=== PATIENT | female | born 1935 | race Caucasian/White ===

== ENCOUNTER 2019-07-11 19:30 | Inpatient (IN) | payer MEDICARE, OTHER, SELFPAY ==
[2019-07-11 21:35] VITALS: BP 155/87; PULSE 59; RESP 17; TEMP 36.6; O2SAT 96
[2019-07-11] MEDS: LACTATED RINGERS 1,000 ML 100 ML IV (22:07)
[2019-07-11 22:41] VITALS: O2SAT 92; BMI 21.4
--- NOTE | 2019-07-11 22:43 | PM.HP.1 ---
History of Present Illness History of Present Illness Date Patient Seen: 07/11/19 Time Patient Seen: 22:12 Chief complaint: Right Hip Fx Narrative: Ms. Sheila Mckenna is an 83-year-old female with a history significant for hypertension, hyperlipidemia, depression with anxiety, hypothyroidism, osteoporosis, insomnia, tremor, chronic diarrhea and presbycusis who presents to the ER at [facility] referred by her primary care for right hip pain. Patient sustained a ground level fall, tripping and landing forward on her hands mild [employer] on 07/05/2019. Patient was unable to get due to hip pain and was taken by wheelchair to her car. She contacted her primary care and had imaging done on 07/07/2019 of the hip which were read as normal. Patient again contacted primary care for worsening hip pain and contacted EMS his recommend by her primary care and taken to [facility]. Patient states she never loss consciousness or struck her head and following and has no neck or back pain. She has isolated hip pain which she treated at home with ibuprofen without relief. She has occasional headaches but denies any at the present time. She denies dizziness nasal congestion or sore throat. She reports no complaints of chest pain or palpitations and has no shortness of breath cough or wheezing. She does have occasional abdominal discomfort but none presently and has a history of chronic diarrhea for which she takes anti diarrheal medication every other day. She denies urinary complaints of urgency, frequency or burning. Well there CT scan was obtained which found a impacted subcapital right femoral neck fracture. Lab work obtained well in the ER reveals a white blood cell count of 6.7, hemoglobin 13.4, hematocrit of 38.7 platelets of 418. On chemistry she has a sodium of 128, potassium of 3.5, BUN of 12 and creatinine 0.7 nonfasting glucose of 103. She has a total bilirubin of 0.5, AST of 28 and ALT of 27. On coagulation she has a PT of 12.6 and INR 1.1. [facility] as no on-call orthopedics and therefore contacted Dr. Rissa Benitse who agreed to consult with request for medicine team to admit patient. Patient History Medical History (Updated 07/11/19 @ 22:55 by ORVILLE Mortensen) Chronic diarrhea (Acute) Depression with anxiety (Acute) Hard of hearing (Acute) Hyperlipidemia (Acute) Hypertension (Acute) Hypothyroidism (Acute) Insomnia (Acute) Osteoporosis (Acute) Tremor (Acute) Surgical History (Updated 07/11/19 @ 22:55 by ORVILLE Mortensen) History of cataract surgery (Acute) History of colonoscopy (Acute) History of lumbar laminectomy (Acute) Comment: The patient is the 1st and lives alone in an apartment. Smoking: The patient states she has never used tobacco products. Alcohol: Patient denies alcohol consumption. Substance use: The patient denies recreational pharmaceuticals herbal or cannabis products. Advanced directives: In direct discussion with the patient she states her desire to be FULL CODE. She designates her son Hema Mckenna or Ronnie Mckenna to be surrogate decision makers. Family & Social History Family History (Updated 07/11/19 @ 22:56 by ORVILLE Mortensen) Father Alcoholism Mother Osteoarthritis Hypertension Dementia Sister Hypertension Addiction Meds Home Medications and Allergies Home Medications Medication Instructions Recorded Confirmed Type acyclovir 400 mg PO TID 07/11/19 07/11/19 History atenolol-chlorthalidone 1 tab PO DAILY 07/11/19 07/11/19 History clonazepam 0.5 mg PO Q8H PRN 07/11/19 07/11/19 History fluoxetine 10 mg PO DAILY 07/11/19 07/11/19 History fluoxetine 20 mg PO DAILY 07/11/19 07/11/19 History gabapentin 300 mg PO BEDTIME 07/11/19 07/11/19 History lamotrigine 25 mg PO DAILY 07/11/19 07/11/19 History lxpoy-4z-fem-epa-fish oil [Calvin-3 1,000 cap PO DAILY 07/11/19 07/11/19 History Fish Oil] potassium chloride 20 meq PO DAILY 07/11/19 07/11/19 History risperidone 0.25 mg PO BEDTIME 07/11/19 07/11/19 History temazepam 15 - 20 mg PO BEDTIME PRN 07/11/19 07/11/19 History thyroid (pork) [SWITCHBOARD OPERATOR HELPER Thyroid] 60 mg PO DAILY 07/11/19 07/11/19 History turmeric 400 - 800 mg PO DAILY 07/11/19 07/11/19 History Allergies Allergy/AdvReac Type Severity Reaction Status Date / Time duloxetine Allergy Unknown Verified 07/11/19 22:54 lisinopril Allergy Unknown Verified 07/11/19 22:54 Review of Systems Review of Systems ROS: Yes All systems reviewed with the patient and are negative except as otherwise documented Exam Vital Signs (past 8 hours): - 07/11/19 21:35 Temperature 97.9 F Pulse Rate 59 L Respiratory Rate 17 Blood Pressure 155/87 H Pulse Oximetry 96 Oxygen Flow Rate 0 Narrative Exam Narrative: GENERAL APPEARANCE: well developed, well nourished, in no acute distress. HEENT: Atraumatic, PERRLA, conjunctiva clear, EOMs intact without nystagmus, no sinus tenderness to percussion, no rhinorrhea, mucous membranes are moist and pink without lesions or exudate. NECK/THYROID: Intact ROM without pain or step-offs, no JVD, no carotid bruit, no thyromegaly, trachea midline. LYMPH NODES: no cervical or supraclavicular lymphadenopathy. SKIN: [place], warm and dry, no visible lesions, rashes, ulcerations or petechiae. HEART: Irregular heart rhythm, S1-S2, 1/6 systolic murmur, no rubs or gallops, brisk capillary refill, no edema LUNGS: clear to auscultation bilaterally, no coarseness crackles or wheezing, no cough present CHEST: Symmetrical movement, mild tenderness to palpation anterior chest wall left parasternal without bruising or ecchymosis, no accessory muscle use, good tidal volume. ABDOMEN: Soft, round, attempting to percussion without tenderness, no guarding or peritoneal signs, no organomegaly, no flank or suprapubic tenderness, active bowel tones. BACK: nontender to palpation, no back pain with left straight leg raise EXTREMITIES: Pain on palpation lateral right hip, no shortening or rotation of the right leg, distal CMS intact, strength is 5/5 and symmetrical, NEUROLOGIC: AAO x4, no focal neurologic deficits, cranial nerves II-XII grossly intact, sensation intact to light touch. PSYCH: Somewhat blunted affect but alert and responsive asking spontaneous questions and interactive with stable behavior. Assessment & Plan Assessment & Plan narrative: This is an 83-year-old female patient who has accepted in transfer from [facility] Emergency Department for orthopedic services in treatment of right hip fracture.. Patient sustained a fall on 07/04 and had plain films obtained on 07/06 that were read as normal. The patient continued to have worsening pain and presented to the ER via EMS or CT scan identifies right femoral neck fracture. 1. Right impacted subcapital femoral neck fracture, pathological, acute, present on admission, active. -patient sustained a ground level twisting fall sustaining a pathological hip fracture with a history of osteoporosis -patient sustained fall as above presenting to [facility] for worsening pain. Patient received oxycodone 5 mg x 1 in the ER. -CT scan of the pelvis finds a nondisplaced impacted subcapital femoral neck fracture, 7 mm sclerotic osseous lesion in the right iliac wing was visible prior films dated 09/01, right severe posterior joint space loss with subchondral sclerosis. -there is no orthopedic service available at [facility] and patient is accepted by Dr. Benites for surgical intervention and transferred to [facility]. -ordered acetaminophen 975 mg scheduled every 8 hours for pain. -ordered tramadol 50 mg 3 times daily as needed for pain. -will continue home medication of gabapentin 300 mg by mouth at bedtime. 2. Osteoporosis, chronic, present on admission, active -patient has sustained a pathological hip fracture secondary to osteoporosis. -the patient is not presently on vitamin-D or calcium supplementation, ordered vitamin D3 2000 IU and calcium 600 mg daily. -patient may benefit from bio phosphate or denosumab therapy and deferred to primary care provider. 3. Essential hypertension, chronic, present on admission, active. -upon arrival the patient has a blood pressure 155/87. -will continue home regimen of atenolol 50 mg daily but will hold chlorthalidone 25 mg daily as the patient is hyponatremic at 1:28 a.m. and has potassium of 3.5. 4. Hypothyroidism, chronic, stable -will continue home regimen of SWITCHBOARD OPERATOR HELPER Thyroid 60 mg daily. 5. Chronic diarrhea, stable -patient reports she has been referred to gastroenterology but has not yet been evaluated. -patient takes antidiarrheal every other day to control symptoms, ordered a Imodium every other day with 1st dose now. 6. Insomnia, chronic, active. -patient takes temazepam 1-2 tablets nightly for sleep. -inform the patient that due to use of pain medications will hold temazepam, ordered melatonin 6 mg at bedtime. -patient has routine as needed medication of clonazepam 0.5 mg as needed every 8 hours. May be used as adjunct for sleep. 7. Depression with anxiety, chronic, unknown stability. -the patient's blunted affect at time of assessment still under the effect of oxycodone administered at [facility]. -patient remains cooperative but requires repeat explanations. -will continue patient's home regime of fluoxetine 30 mg daily, lamotrigine 25 mg daily and risperidone 0.25 mg at bedtime. VTE prophylaxis: SCDs, no chemical prophylaxis pending surgery. IV fluid: Normal saline 125 cc/hour. Diet: Heart healthy, NPO at midnight. Code status: FULL CODE The patient is admitted to the hospital for surgical evaluation and intervention by Dr. Benties. The patient is admitted as an inpatient with expected length of stay to be greater than 2 midnights. Scores GCS Jinny coma scale eye opening: Spontaneous [place] coma scale verbal response: Orientated Jinny coma scale motor response: Obey commands [place] coma scale total score: 15
[2019-07-11] MEDS: SODIUM CHLORIDE 0.9% 1,000 ML 125 ML IV (22:55)
[2019-07-11] MEDS: GABAPENTIN 300 MG CAPSULE PO (23:05)
[2019-07-11] MEDS: MELATONIN 3 MG TABLET 6 MG PO (23:05)
[2019-07-11] MEDS: TRAMADOL 50 MG TABLET PO (23:06)
[2019-07-11] MEDS: ACETAMINOPHEN 325 MG TABLET 975 MG PO (23:06)
[2019-07-11 23:53] VITALS: BP 128/74; PULSE 51; RESP 16; TEMP 36.3; O2SAT 94
[2019-07-11 23:57] VITALS: O2SAT 94
[2019-07-12] VITALS (10 sets, daily range): BP systolic 121–161; BP diastolic 62–89; PULSE 47–67; RESP 16–18; TEMP 36.1–37.1; O2SAT 94–99
--- NOTE | 2019-07-12 04:07 | PC.NURSE ---
Addendum entered by Ramona Pennington R.N. 07/12/19 05:19: Patient total output was 225ml, indwelling catheter ordered by LICENSING OFFICER and placed without difficulty. Original Note: Patient has external catheter system (Purewick) that was applied by [employer]. Patient had not voided by 0400, BS for estimated 728ml. Patient requested that DANCE ARTIST carry her to the [facility], was educated that it was unsafe for both patient and staff and encouraged her to utilize external catheter. Discussed with LICENSING OFFICER, stated that patient should not get out of bed given her hip fx and to offer the use of a bed yanez before an indwelling catheter. Patient was able to urinate 25ml into purewick that was measurable which was then removed and patient placed on bed yanez. Will bladder scan patient after voiding attempts to determine if bladder is empty or if an indwelling catheter is necessary.
[2019-07-12 05:54] LABS: RBC Urine None Seen (0-5/HPF)
[2019-07-12 05:55] LABS: Appearance Urine UA CLEAR; Bilirubin Urine UA NEGATIVE (NEGATIVE); Color Urine UA YELLOW; Glucose Urine UA NEGATIVE (Negative); Ketones Urine UA NEGATIVE (NEGATIVE); Leukocyte Esterase Urine UA 2+ (NEGATIVE); Nitrite Urine UA NEGATIVE (Negative); Occult Blood Urine UA NEGATIVE (Negative); Protein Urine UA NEGATIVE (Negative); Specific Gravity Urine UA 1.015 (1.000-1.035); Urobilinogen Urine UA 0.2 E.U./dL (0.2)
[2019-07-12 06:06] LABS: pH Urine UA 7.5 (4.5-8.0)
[2019-07-12] MEDS: SODIUM CHLORIDE 0.9% 1,000 ML 125 ML IV (06:08)
[2019-07-12] MEDS: ACETAMINOPHEN 325 MG TABLET 975 MG PO ×3 (06:08→21:51)
[2019-07-12 06:09] LABS: Bacteria Urine Occasional (0-1); Culture Indicated Urine Specimen Cultured; Squamous Epithelial Cell Urine 0-1 /HPF (0-5/HPF); WBC Urine 1-5/HPF (0-5/HPF)
[2019-07-12 06:27] LABS: Add Manual Diff / Slide Review NO; Alanine Aminotransferase 26 IU/L (<35); Albumin 3.3 g/dL (3.5-5.0); Albumin Globulin Ratio 1.1 (1.0-2.8); Alkaline Phosphatase 39 U/L (38-126); Aspartate Aminotransferase 32 IU/L (14-36); BUN Creatinine Ratio 16.7 (6-22); Basophils Absolute Auto 0 /uL (0-100); Basophils Percent Auto 0.8 % (0-2); Bilirubin Total 0.3 mg/dL (0.2-1.3); Blood Urea Nitrogen 11 mg/dL (7-17); Calcium 8.7 mg/dL (8.4-10.2); Carbon Dioxide 32 mmol/L (22-32); Chloride 95 mmol/L (98-107); Eosinophils Absolute Auto 200 /uL (0-450); Eosinophils Percent Auto 4.7 % (2-4); Estimated Glomerular Filt Rate > 60.0 mL/min (>60); Glucose 102 mg/dL (80-110); HEMOLYSIS < 15 (0-50); Hematocrit 36.8 % (36-46); Hemoglobin 12.7 g/dL (12.0-16.0); Lymphocytes Absolute Auto 1300 /uL (1100-4500); Lymphocytes Percent Auto 26.5 % (25-40); Magnesium 1.6 mg/dL (1.6-2.3); Mean Corpuscular HGB Conc 34.6 % (30-36); Mean Corpuscular Hemoglobin 31.3 PG (26-34); Mean Corpuscular Volume 90.6 fL (80-100); Monocytes Absolute Auto 700 /uL (0-900); Monocytes Percent Auto 15.1 % (3-14); Neutrophils Absolute Auto 2500 /uL (1500-7000); Neutrophils Percent Auto 52.9 % (50-75); Platelet Count 431 X10^3/uL (150-400); Potassium 3.3 mmol/L (3.4-5.1); Red Blood Cell Count 4.06 X10^6/uL (4.0-5.2); Red Cell Distribution Width 14.2 % (11.6-14.8); Sodium 133 mmol/L (137-145); Total Protein 6.3 g/dL (6.3-8.2); White Blood Cell Count 4.7 X10^3/uL (4.5-11.0)
--- NOTE | 2019-07-12 08:32 | P.PN_ITS ---
Subjective Subjective Date Patient Seen: 07/12/19 Interval history: Sheila Mckenna is an 83-year-old female with a past medical history significant for hypertension, hyperlipidemia, depression with anxiety, hypothyroidism, osteoporosis, insomnia, tremor, and chronic diarrhea who presented to [facility] after ground level fall with right hip pain at the guidance of her PCP and was found to have a right hip fracture. Patient was transferred to [facility] as Orthopedic surgery was unavailable at [facility]. The patient is resting in bed comfortably. She reports mild pain at right hip that she rates a +2/10 but that worsens with any movement. She has no other complaints and denies headache, cough, shortness of breath, chest pain, abdominal pain, nausea, vomiting, fever, chills, dysuria, diarrhea or constipation. She is voiding via Navas catheter without difficulty. Plan for possible surgical repair later this afternoon pending COVID 19 results. Exam Vital Signs (past 8 hours): - 07/12/19 04:00 07/12/19 04:51 07/12/19 08:02 Temperature 97.0 F L 97.3 F L Pulse Rate 47 L 55 L Respiratory Rate 18 16 Blood Pressure 161/77 H 139/75 Pulse Oximetry 98 94 99 Oxygen Delivery Method Room Air Oxygen Flow Rate 0 Narrative Exam Narrative: General: Elderly female sitting in bed and in no acute distress, well- developed, well-nourished, appropriately interactive. HEENT: Normocephalic, atraumatic. External ears without defect. Pupils equal, round, and reactive to light and accommodation. Anicteric sclerae, moist conjunctivae, and no lid lag. Oropharynx free of erythema and cobble stoning with moist mucosa. Neck: Supple with full range of motion. No jugular venous distension. No bruits. No lymphadenopathy or thyromegaly. Cardiovascular: Regular rate and rhythm without murmurs, rubs, or gallops appreciated. Pulmonary: Clear to auscultation bilaterally without crackles, wheezes, or rhonchi. Normal respiratory effort with no use of accessory muscles. Abdomen: Soft, bowel sounds present nontender, nondistended. No hepatosplenomegaly or masses appreciated. Extremities: No clubbing, cyanosis, or edema. No obvious deformity of right hip. Skin: Normal temperature, turgor, and texture; no rash, ulcers, or subcutaneous nodules appreciated. Neurological: Cranial nerves grossly intact. Psychiatric: Normal mood and flat affect. Alert and oriented to person, place, and time. Objective Labs Result Diagrams: 07/12/19 05:58 07/12/19 05:58 Labs: Laboratory Results - last 24 hr 07/12/19 07/12/19 07/12/19 05:00 05:58 05:58 WBC 4.7 RBC 4.06 Hgb 12.7 Hct 36.8 MCV 90.6 MCH 31.3 MCHC 34.6 RDW 14.2 Plt Count 431 H Neut % (Auto) 52.9 Lymph % (Auto) 26.5 [place] % (Auto) 15.1 H Eos % (Auto) 4.7 H Baso % (Auto) 0.8 Neut # (Auto) 2500 Lymph # (Auto) 1300 [place] # (Auto) 700 Eos # (Auto) 200 Baso # (Auto) 0 Sodium 133 L Potassium 3.3 L Chloride 95 L Carbon Dioxide 32 BUN 11 Creatinine 0.66 Estimated GFR > 60.0 BUN/Creatinine Ratio 16.7 Glucose 102 Calcium 8.7 Magnesium 1.6 Total Bilirubin 0.3 AST 32 ALT 26 Alkaline Phosphatase 39 Total Protein 6.3 Albumin 3.3 L Globulin 3.0 Albumin/Globulin Ratio 1.1 Urine Color Yellow Urine Appearance Clear Urine pH 7.5 Ur Specific [place] 1.015 Urine Protein Negative Urine Glucose (UA) Negative Urine Ketones Negative Urine Occult Blood Negative Urine Nitrate Negative Urine Bilirubin Negative Urine Urobilinogen 0.2 Ur Leukocyte Esterase 2+ H Urine RBC None seen Urine WBC 1-5/hpf Ur Squamous Epith Cells 0-1 /hpf Urine Bacteria Occasional (0-1) Ur Culture Indicated? Specimen cultured Assessment & Plan Assessment & Plan narrative: Sheila Mckenna is an 83-year-old female with a past medical history significant for hypertension, hyperlipidemia, depression with anxiety, hypothyroidism, osteoporosis, insomnia, tremor, and chronic diarrhea who presented to [facility] after ground level fall with right hip pain at the guidance of her PCP and was found to have a right hip fracture. Patient was transferred to [facility] as Orthopedic surgery was unavailable at [facility]. 1. Acute right pathological impacted subcapital femoral neck fracture, present on admission. Active. -Patient sustained ground level fall with immediate right hip pain and minimally able to ambulate. -CT of pelvis demonstrated a nondisplaced impacted subcapital femoral neck fracture, 7 mm sclerotic osseous lesion in the right iliac wing was visible on prior films dated 2009, right severe posterior joint space loss with subchondral sclerosis. -Patient was transferred from [facility] as Orthopedic surgery was unavailabl. Dr. Benites of orthopedic surgery was consulted and will plan to the repair patient's right hip possibly this afternoon versus tomorrow pending COVID 19 results. -Continue acetaminophen 975 mg scheduled every 8 hours for mild pain and tramadol 50 mg 3 times daily as needed for moderate pain. -Continue home medication of gabapentin 300 mg by mouth at bedtime. -Continue calcium and vitamin-D supplementation. Patient will need to be treated for osteoporosis as an outpatient per PCP or Orthopedic surgery. 2. Hypertension, chronic, present on admission. Stable. -Continue home atenolol 50 mg daily. Held home chlorthalidone 25 mg daily as the patient is hyponatremic with sodium level of 128. 3. Hypothyroidism, chronic, present on admission. Stable. -Ordered TSH with reflex, pending. -Continue home STEAM PLANT OPERATOR Thyroid 60 mg daily. 4. Chronic diarrhea, present on admission. Stable. -Patient reports she has been referred to gastroenterology but has not yet been evaluated. -Patient takes antidiarrheal every other day to control symptoms. Continue home Imodium 2 mg every other day. 5. Insomnia, chronic, present on admission. Stable. -Plan to hold temazepam 15-20 mg daily at bedtime due to concurrent use with narcotics. Ordered and continue melatonin 6 mg at bedtime. -Continue home clonazepam 0.5 mg every 8 hours as needed for anxiety as below and may be used as adjunct for sleep. 6. Depression with anxiety, chronic, unknown stability. -Patient has flat affect and stable mood. She remains cooperative but requires repeat explanations. -Continue home clonazepam 0.5 mg every 8 hours as needed for anxiety, fluoxetine 30 mg daily, lamotrigine 25 mg daily and risperidone 0.25 mg at bedtime. Code status: Full code VTE prophylaxis: ASA x 1 dose and SCD's Disposition: Patient remains hospitalized pending surgical repair of right hip. Patient will likely discharge in several days once mobilizing either home with home health versus assisted facility for continued rehabilitation.
--- NOTE | 2019-07-12 10:21 | PM.CHAP ---
Addendum entered by Colton Arreola 07/12/19 10:33: Additional contact information: daughter: Le Mckenna, friend in [place] with apartment: [address], or [phone] Original Note: Pt. is family friend. Sister Marli is in [place]. I have contact information for friends in [place] and for pt's daughter who lives in the area. Please encourage pt. and daughter to contact me. Her friends in [place] say Happy Birthday! Manas Arreola [phone]
[2019-07-12] MEDS: FLUoxetine 20 MG CAPSULE 30 MG PO (10:36)
[2019-07-12] MEDS: POTASSIUM CHLORIDE 20 MEQ TAB 40 MEQ PO (10:36)
[2019-07-12] MEDS: CHOLECALCIFEROL (VITAMIN D3) 1,000 UNIT TABLET 2000 UNIT PO (10:36)
[2019-07-12] MEDS: CALCIUM CARBONATE 600 MG TABLET PO (10:37)
[2019-07-12] MEDS: MAGNESIUM CHLORIDE 64 MG TABLET 128 MG PO (10:37)
[2019-07-12] MEDS: lamoTRIgine 25 MG CHEW TABLET PO (10:38)
[2019-07-12] MEDS: THYROID, PORK 60 MG TABLET PO (10:38)
--- NOTE | 2019-07-12 11:28 | P.HP_ITS ---
History of Present Illness History of Present Illness Date Patient Seen: 07/12/19 Time Patient Seen: 11:28 Date of Onset of Symptoms: 07/05/19 Chief complaint: Right Hip Fx Narrative: This is a pleasant 84-year-old female who was at [employer] 1 week ago when she accidentally fell and landed on her right hip. She noted the acute onset of significant right hip pain but with the assistant import manager of two [employer] workers she was able to get to her car. She then went home but had continued problem with putting any weight on her right leg and she went to [facility] where x-rays were taken and they could not find a right hip fracture. She returned to [facility] yesterday had repeat x-rays and a CT scan which showed a right femoral neck fracture. She was transferred [facility] for treatment. Patient History Medical History Chronic diarrhea (Acute) Depression with anxiety (Acute) Hard of hearing (Acute) Hyperlipidemia (Acute) Hypertension (Acute) Hypothyroidism (Acute) Insomnia (Acute) Osteoporosis (Acute) Tremor (Acute) Surgical History History of cataract surgery (Acute) History of colonoscopy (Acute) History of lumbar laminectomy (Acute) Family & Social History Family History Father Alcoholism Mother Osteoarthritis Hypertension Dementia Sister Hypertension Addiction Social History: household members none Prior Living Arrangements House Safety & Behavioral: Feels Safe in Current Yes Environment Been Physically Hurt or No Threatened By a Person Suicidal Ideation Description None Suicide Plan Description No Plan Tobacco & Substance use: Smoking Status Never smoker alcohol intake never Substance Use Type does not use Meds Home Medications and Allergies Home Medications Medication Instructions Recorded Confirmed Type acyclovir 400 mg PO TID 07/11/19 07/11/19 History atenolol-chlorthalidone 1 tab PO DAILY 07/11/19 07/11/19 History clonazepam 0.5 mg PO Q8H PRN 07/11/19 07/11/19 History fluoxetine 10 mg PO DAILY 07/11/19 07/11/19 History fluoxetine 20 mg PO DAILY 07/11/19 07/11/19 History gabapentin 300 mg PO BEDTIME 07/11/19 07/11/19 History lamotrigine 25 mg PO DAILY 07/11/19 07/11/19 History mwlbm-9u-dal-epa-fish oil [[place]-3 1,000 cap PO DAILY 07/11/19 07/11/19 History Fish Oil] potassium chloride 20 meq PO DAILY 07/11/19 07/11/19 History risperidone 0.25 mg PO BEDTIME 07/11/19 07/11/19 History temazepam 15 - 20 mg PO BEDTIME PRN 07/11/19 07/11/19 History thyroid (pork) [MAGNETIC RESONANCE IMAGING COORDINATOR Thyroid] 60 mg PO DAILY 07/11/19 07/11/19 History turmeric 400 - 800 mg PO DAILY 07/11/19 07/11/19 History Allergies Allergy/AdvReac Type Severity Reaction Status Date / Time duloxetine Allergy Unknown Verified 07/11/19 22:54 lisinopril Allergy Unknown Verified 07/11/19 22:54 Review of Systems Review of Systems Narrative: She denies any recent fever, shortness of breath, respiratory problems, denies a history of chest pain, night sweats, abdominal pain, she was not lightheaded or dizzy prior to her fall and has not had any recent cardiac symptoms Exam Vital Signs (past 8 hours): - 07/12/19 04:00 07/12/19 04:51 07/12/19 08:02 Temperature 97.0 F L 97.3 F L Pulse Rate 47 L 55 L Respiratory Rate 18 16 Blood Pressure 161/77 H 139/75 Pulse Oximetry 98 94 99 07/12/19 10:27 Temperature Pulse Rate Respiratory Rate Blood Pressure Pulse Oximetry 96 Oxygen Delivery Method Room Air Oxygen Flow Rate 0 Narrative Exam Narrative: HEENT is benign, neck is supple no carotid bruit, lungs are clear, cor regular rate and rhythm, abdomen soft and benign, she has pain with attempted range of motion into the right hip, there is minimal shortening, skins noted to be intact, she can fire toe flexors and extensors without difficulty, her calfs are soft bilaterally, and sensations intact in bilateral lower extremities Objective Labs Result Diagrams: 07/12/19 05:58 07/12/19 05:58 Labs: Laboratory Results - last 24 hr 07/12/19 07/12/19 07/12/19 05:00 05:58 05:58 WBC 4.7 RBC 4.06 Hgb 12.7 Hct 36.8 MCV 90.6 MCH 31.3 MCHC 34.6 RDW 14.2 Plt Count 431 H Neut % (Auto) 52.9 Lymph % (Auto) 26.5 [place] % (Auto) 15.1 H Eos % (Auto) 4.7 H Baso % (Auto) 0.8 Neut # (Auto) 2500 Lymph # (Auto) 1300 [place] # (Auto) 700 Eos # (Auto) 200 Baso # (Auto) 0 Sodium 133 L Potassium 3.3 L Chloride 95 L Carbon Dioxide 32 BUN 11 Creatinine 0.66 Estimated GFR > 60.0 BUN/Creatinine Ratio 16.7 Glucose 102 Calcium 8.7 Magnesium 1.6 Total Bilirubin 0.3 AST 32 ALT 26 Alkaline Phosphatase 39 Total Protein 6.3 Albumin 3.3 L Globulin 3.0 Albumin/Globulin Ratio 1.1 Urine Color Yellow Urine Appearance Clear Urine pH 7.5 Ur Specific [place] 1.015 Urine Protein Negative Urine Glucose (UA) Negative Urine Ketones Negative Urine Occult Blood Negative Urine Nitrate Negative Urine Bilirubin Negative Urine Urobilinogen 0.2 Ur Leukocyte Esterase 2+ H Urine RBC None seen Urine WBC 1-5/hpf Ur Squamous Epith Cells 0-1 /hpf Urine Bacteria Occasional (0-1) Ur Culture Indicated? Specimen cultured Assessment & Plan Assessment & Plan narrative: Right femoral neck fracture with displacement. I have recommended a right hip unipolar. Procedure alternatives risks benefits and complications were discussed in detail. She does live with a supportive daughter and would like her discharge plan to be to go home if possible. She has had no symptoms of Covid but we have a COVID-19 test from yesterday pending. The plan is for cemented right hip unipolar. She understands and agrees and will proceed with that when appropriate.
--- NOTE | 2019-07-12 12:03 | CM.DANOTE ---
Addendum entered by Monika Whitehead R.N. 07/12/19 15:56: Went ahead and sent referral to August at [facility], left her a message to review, in case she needs fpc. Original Note: DCP: Case received, EMR reviewed and met with patient. Introduced self and role. Was able to meet with patient in her room and obtain information regarding her baseline activity level, as well as living situation. DCP assessment was completed with information currently available. Patient is an 83 year old female who admitted yesterday evening to the care of the hospitalist/orthopedic team. PCP: Dr. Castellanos. Payer: confirmed: Medicare/[facility]. Patient came to the hospital via ambulance from [facility]. She has sustained a ground level fall at [facility] in [place]. She had been helped up, and brought back to her car. She had followed up with her primary health care provider, who suggested that she go to [facility] for x-ray, secondary to right hip pain. She had gone to [facility], and was diagnosed with subcapital femoral neck fracture. She was brought here to [facility], for they do not orthopedist at [facility] currently. Patient is to be having surgery tomorrow. Manas Arreola, business services vice president, is familiar with patient, is a friend of the family. Stated that she lives alone, but her apartment is upstairs. She mentioned that she has another family member that will allow her to stay with her, since it is a single level home. Patient is on COVID rule out as well. Met with patient after gowning up, since she is on droplet precautions, and was not answering her phone. Discussed fpc rehab potential need, and brought her in Medicare Choice List. She stated, I don't want to go to skilled rehab, especially with the virus going around. She stated that she has her daughter to help her out, and will be staying in a one level home. Asked her if she would consent to home health, and she stated, she would. She has no preference, as far as any certain home health agencies, for she is not familiar with them. At this time, she is sure that she does not want skilled rehab. Will see how she does with P.T. after she has surgery. She is Medicare, so she would need 3 midnight stay at inpatient status to qualify, if this is the need. P: DCP to be available for resources. Patient has Medicare Choice List to look at. Will also see how she does after surgery with Navin Whitehead RN/Artificial Breeding Technician
[2019-07-12] MEDS: TRAMADOL 50 MG TABLET PO ×3 (16:55→22:50)
[2019-07-12] MEDS: ASPIRIN EC 81 MG TABLET PO (19:16)
--- NOTE | 2019-07-12 19:38 | PC.NURSE ---
Spoke with MD Benites about still pending results on Covid-19 test. Also relayed info from MD Chowdary to MD Benites about DVT prophylaxis and one time dose of baby aspirin has been ordered. Shift RN Callum Larry also updated on this info.
[2019-07-12] MEDS: clonazePAM 0.5 MG TABLET PO (21:50)
[2019-07-12] MEDS: MELATONIN 3 MG TABLET 6 MG PO (21:51)
[2019-07-12] MEDS: GABAPENTIN 300 MG CAPSULE PO (21:51)
[2019-07-12] MEDS: risperiDONE 0.25 MG TABLET PO (21:52)
[2019-07-13] VITALS (22 sets, daily range): BP systolic 124–182; BP diastolic 51–86; PULSE 51–84; RESP 9–19; TEMP 35.9–37.1; O2SAT 93–99
--- NOTE | 2019-07-13 | DI.RAD.S_ITS ---
PROCEDURE: XR HIP W PEL IF DONE RT 2V INDICATIONS: UNI POLAR HIP TECHNIQUE: AP pelvis and lateral view of the right hip acquired. COMPARISON: None. FINDINGS: Bones: Patient is status post right hip arthroplasty, with hardware components in expected positions. The hip joint appears congruent. The visualized bony structures appear intact. Soft tissues: Overlying postoperative changes are noted. No suspicious soft tissue densities. IMPRESSION: Expected appearance of right hip arthroplasty. Dictated by: Eileen Moore M.D. on 07/13/2019 at 17:35 Approved by: Eileen Moore M.D. on 07/13/2019 at 17:35
[2019-07-13] MEDS: OXYCODONE IR 5 MG TABLET PO ×3 (00:15→11:46)
--- NOTE | 2019-07-13 00:16 | PC.NURSE ---
AxOx3, able to make needs known. Was medicated on evening shift for pain, requesting at start of NOC shift for additional pain medication and a second dose of clonazepam. Spoke to NECKTIE STITCHER and he ordered a single dose of oxycodone and no additional dose of clonazepam. Will continue to monitor patient. High fall risk due to recent fall and hip fx, bed alarm on and functioning, call light in reach.
--- NOTE | 2019-07-13 04:47 | PC.NURSE ---
Call placed to [facility] for copy of COVID-19 results. Spoke with patrol supervisor Anaid and she states she will fax them if the results are back.
--- NOTE | 2019-07-13 04:52 | PC.NURSE ---
Dominique from [facility] called and reported that the results are not back yet on the COVID-19 but states she will email their Infection Specialist to follow up and report to [place] as soon as the results are back.
[2019-07-13] MEDS: THYROID, PORK 60 MG TABLET PO (06:03)
[2019-07-13] MEDS: ACETAMINOPHEN 325 MG TABLET 975 MG PO (06:03)
--- NOTE | 2019-07-13 06:25 | PC.NURSE ---
Results from lab Covid Negative.
--- NOTE | 2019-07-13 07:57 | P.PN_ITS ---
Subjective Subjective Date Patient Seen: 07/13/19 Interval history: Sheila Mckenna is an 83-year-old female with a past medical history significant for hypertension, hyperlipidemia, depression with anxiety, hypothyroidism, osteoporosis, insomnia, tremor, and chronic diarrhea who presented to [facility] after ground level fall with right hip pain at the guidance of her PCP and was found to have a right hip fracture. Patient was transferred to [facility] as Orthopedic surgery was unavailable at [facility]. The patient is resting in bed comfortably. She reports mild pain at right hip that she rates a +3/10 and worsens with any movement. She reports her pain is better controlled with oxycodone last night than the tramadol. She has no other complaints and denies headache, cough, shortness of breath, chest pain, abdominal pain, nausea, vomiting, fever, chills, dysuria, diarrhea or constipation. She is voiding via Navas catheter without difficulty. Her COVID- 19 screening test was negative and ruled out. Plan for surgical repair later this afternoon. Exam Vital Signs (past 8 hours): - 07/13/19 00:00 07/13/19 00:03 07/13/19 04:00 Temperature 98.6 F Pulse Rate 64 Respiratory Rate 18 Blood Pressure 141/70 H Pulse Oximetry 96 96 96 07/13/19 05:25 Temperature 98.4 F Pulse Rate 51 L Respiratory Rate 16 Blood Pressure 162/84 H Pulse Oximetry 98 Oxygen Delivery Method Room Air Oxygen Flow Rate 0 Narrative Exam Narrative: General: Elderly female sitting in bed and in no acute distress, well- developed, well-nourished, appropriately interactive. HEENT: Normocephalic, atraumatic. External ears without defect. Pupils equal, round, and reactive to light and accommodation. Anicteric sclerae, moist conjun ctivae, and no lid lag. Oropharynx free of erythema and cobble stoning with moist mucosa. Neck: Supple with full range of motion. No jugular venous distension. No bruits. No lymphadenopathy or thyromegaly. Cardiovascular: Regular rate and rhythm without murmurs, rubs, or gallops appreciated. Pulmonary: Clear to auscultation bilaterally without crackles, wheezes, or rhonchi. Normal respiratory effort with no use of accessory muscles. Abdomen: Soft, bowel sounds present nontender, nondistended. No hepatosplenomegaly or masses appreciated. Extremities: No clubbing, cyanosis, or edema. No obvious deformity of right hip. Skin: Normal temperature, turgor, and texture; no rash, ulcers, or subcutaneous nodules appreciated. Neurological: Cranial nerves grossly intact. Psychiatric: Perseverates on ideas. Normal mood and flat affect. Alert and oriented to person, place, and time. Objective Labs Result Diagrams: 07/12/19 05:58 07/12/19 05:58 Assessment & Plan Assessment & Plan narrative: Sheila Mckenna is an 83-year-old female with a past medical history significant for hypertension, hyperlipidemia, depression with anxiety, hypothyroidism, osteoporosis, insomnia, tremor, and chronic diarrhea who presented to [facility] after ground level fall with right hip pain at the guidance of her PCP and was found to have a right hip fracture. Patient was transferred to [facility] as Orthopedic surgery was unavailable at [facility]. 1. Acute right pathological impacted subcapital femoral neck fracture, present on admission. Active. -Patient sustained ground level fall with immediate right hip pain and minimally able to ambulate. -CT of pelvis demonstrated a nondisplaced impacted subcapital femoral neck fracture, 7 mm sclerotic osseous lesion in the right iliac wing was visible on prior films dated 2009, right severe posterior joint space loss with subchondral sclerosis. -Patient was transferred from [facility] as Orthopedic surgery was unavailabl. Dr. Benites of orthopedic surgery was consulted and will plan to the repair patient's right hip later this afternoon. Continue postoperative management, DVT prophylaxis and pain control per Orthopedic surgery. -Patient was screened for COVID 19 which was negative in ruled out. -Continue acetaminophen 975 mg scheduled every 8 hours for mild pain and tramadol 50 mg 3 times daily as needed for moderate pain. -Continue home medication of gabapentin 300 mg by mouth at bedtime. -Continue calcium and vitamin-D supplementation. Patient will need to be treated for osteoporosis as an outpatient per PCP or Orthopedic surgery. 2. Hypertension, chronic, present on admission. Stable. -Continue home atenolol 50 mg daily. Held home chlorthalidone 25 mg daily as the patient is hyponatremic with sodium level of 128. 3. Hypothyroidism, chronic, present on admission. Stable. -Ordered TSH with reflex, pending. -Continue home MORTGAGE LOAN COUNSELOR Thyroid 60 mg daily. 4. Chronic diarrhea, present on admission. Stable. -Patient reports she has been referred to gastroenterology but has not yet been evaluated. -Patient takes Imodium 2 mg every other day to control symptoms. Held Imodium due to concern for opiate induced constipation. 5. Insomnia, chronic, present on admission. Stable. -Plan to hold temazepam 15-20 mg daily at bedtime due to concurrent use with narcotics. Ordered and continue melatonin 6 mg at bedtime. -Continue home clonazepam 0.5 mg every 8 hours as needed for anxiety as below and may be used as adjunct for sleep. 6. Depression with anxiety, chronic, unknown stability. -Patient has flat affect and stable mood. She remains cooperative but requires repeat explanations. -Continue home clonazepam 0.5 mg every 8 hours as needed for anxiety, fluoxetine 30 mg daily, lamotrigine 25 mg daily and risperidone 0.25 mg at bedtime. Code status: Full code VTE prophylaxis: ASA x 1 dose and SCD's Disposition: Patient remains hospitalized pending surgical repair of right hip. Patient will likely discharge in several days once mobilizing either home with home health versus nursing home facility for continued rehabilitation.
[2019-07-13] MEDS: POTASSIUM CHLORIDE 40 MEQ in SODIUM CHLORIDE 0.9% 500 ML 130 ML IV (08:16)
[2019-07-13] MEDS: atenoloL 50 MG TABLET PO (09:34)
[2019-07-13] MEDS: lamoTRIgine 25 MG CHEW TABLET PO (09:34)
[2019-07-13] MEDS: FLUoxetine 20 MG CAPSULE 30 MG PO (09:58)
[2019-07-13] MEDS: TRAMADOL 50 MG TABLET PO (10:26)
--- NOTE | 2019-07-13 12:30 | CM.DPC ---
DCP Cont: Spoke to Manas Arreola, who is deputy sheriff, but also friend of patient. He mentioned that after her surgery, she mentioned that she was going to stay at her sister's home, which is one level, but no 24 hour care in the home, for sister is not always there. He stated that patient may be under the assumption that home health provides 24 hour care. He was also thinking that patient should stay with his parents. Spoke to patient in her room. She was waiting to go down to surgery. Discussed options, and encouraged her to consider going to skilled rehab in case this is recommended. Patient stated, she would be willing to go to [facility] if that's what is needed. She also stated, I do have someone that can stay with me for a week, and am hoping for home health. Let patient know that skilled rehab would be temporary, and she could get home health after. She will consider this. P: DCP to continue to follow. Patient is having surgery today. Will see how she does with P.T. afterward. [facility] has referral. She may need another COVID before going to [facility], if it's over 72 hours since test. Other option is home health, and if this is the case, face to face will need to be signed, and will need to ensure that she has care at home. PASSR was completed today. Monika Whitehead RN/Peanut Vendor
[2019-07-13] MEDS: CEFAZOLIN 2 GM/100 ML FROZ.PIGGY IV ×2 (15:24→22:35)
[2019-07-13] MEDS: TRANEXAMIC ACID 1,000 MG VIAL 1000 MG IV ×2 (15:33→16:39)
[2019-07-13] MEDS: VANCOMYCIN 1,000 MG/200 ML PIGGYBACK 200 MG IV (15:36)
--- NOTE | 2019-07-13 15:47 | SUR.OPER ---
Lateral on padded OR bed. Gel axillary roll. Arms secured on padded armboard with pillow supporting top arm. Padded hip positioner braces x4 - anterior and posterior chest and pelvis. Additional gel pad used anterior pelvis. Gel pad under bottom leg from knee to foot and secured with tape over sheet.
[2019-07-13] MEDS: BUPIVACAINE 0.5% W/ EPI (PF) 10 ML VIAL 60 ML INJ (16:24)
[2019-07-13] MEDS: BUPIVACAINE LIPOSOME 266 MG/20 ML VIAL INJ (16:25)
--- NOTE | 2019-07-13 17:29 | P.OP_ITS ---
Operative Date/Time/Diagnoses Date of procedure: 07/13/19 Time of procedure: 14:58 Pre-op diagnosis: Right femoral neck fracture Post-op diagnosis: same Procedure & Clinicians Procedure: Right hip unipolar partial replacement Same procedure as scheduled: Yes Indications: This is a 84-year-old female who fell and sustained a displaced right femoral neck fractures brought the operating room for right hip unipolar. Surgeon: Veronica Benites Departmental Shipping Clerk: Pam Stokes Anesthesia Type: Spinal Operative Notes Findings: Displaced femoral neck fracture, minimal arthritic changes in the acetabulum, good stability Closure Type: primary Specimen(s): none sent Prosthetic devices, grafts, tissues, transplants, or devices: Benites and Nephew size 11 cemented Synergy stem, 48 mm femoral head, +0 neck, 9 mm cementralizer Estimated Blood Loss (mL): 250 Blood products transfused: none Procedure in detail: The patient was seen in the pre-operative area, where the patient identified the right hip as the operative site and this was marked with my initials. The patient received pre-operative antibiotics and was taken to the operating room and placed on the operative table in the supine position after satisfactory anesthesia. A design engineering technician out was performed. Patient was placed in the lateral decubitus position and all bony prominences were carefully padded and the arms were appropriately position. The right lower extremity was prepared from the ankle to the iliac crest with ChloroPrep in the usual fashion and draped through sterile drapes. The hip was approached through posterolateral approach. Dissection was carried out down through skin and subcutaneous tissues. The fascia was opened. Gelpi retractors were placed. A Charnley retractor was placed. A small amount of inflamed bursa was resected. The piriformis was identified and protected. The other short external rotators and capsule were carefully stripped from the posterior aspect of the femur. They were tagged and carefully retracted. The femoral neck was brought up and an osteotomy was made of the residual femoral neck approximately 1 fingerbreadth above the lesser trochanter. The head was removed without difficulty. It was carefully sized. The acetabulum was meticulously irrigated with normal saline. There were [mild] changes in the acetabulum. The acetabulum was carefully protected with an E tape. The canal was opened with a box cutting osteotome, followed by a T-handled reamer and a lateralizing reamer. The tapered reamers were then used, followed by sequential broaching. A trial head and neck were then placed and the hip relocated and checked for leg length and stability. The patient was stable in the position of sleep, of squatting, and could be put through a range of motion with 45 degrees internal rotation without dislocation. At 90 degrees flexion, internal rotation to 80? was possible before dislocation. This was felt to be satisfactory and the appropriate components were opened, and the trials were removed. The femoral canal was sized and a distal cement restrictor was placed. The bone was meticulously cleaned with pulse lavage. The canal was packed with vaginal packing with epinephrine. Antibiotics cement was mixed and carefully pressurized into the femoral canal. The femoral component was placed without difficulty. A repeat trial reduction showed good range of motion and stability. We did a mario ef Betadine soak after the cement had hardened. Patient had good range of motion and stability. The final head and neck were placed after carefully irrigating the wound. The capsulomuscular flap was then repaired to the greater trochanter though an awl hole using the tag sutures. The short external rotators were repaired with black braided nylon. A deep drain was placed and brought out anteriorly. The fascia lizbet was closed with black braided nylon. A subcutaneous drain was placed. The subcutaneous layer was closed with interrupted 3-0 Vicryl, and the skin with a running 3-0 V-Lock suture and surgical glue. An Aquacel Ag dressing was applied and the patient was taken to recovery having tolerated the procedure well. Complications: none Post-operative Condition: stable Disposition: Acute Care Plan for aftercare: The patient will be maintained on a standard total hip replacement protocol with weight bearing as tolerated and posterior hip precautions. The patient will receive Aspirin and sequential compression devices for DVT prophylaxis. The patient will be discharged home when safe for the home environment.
--- NOTE | 2019-07-13 18:00 | SUR.PHASEI ---
1740 late entry IV infused 500 ml, wasn't scanned when hung 1447 to room 214, bed down and locked, call light within reach, SCDs on, O2 at 2LNP, dressing remains CDI. Pt awake, oriented, denies pain/nausea. Stable.
[2019-07-13] MEDS: LACTATED RINGERS 1,000 ML 125 ML IV (18:25)
--- NOTE | 2019-07-13 18:40 | PC.NURSE ---
Pt arrived to room 214 at approx 1750. Awake, Oriented. VSS, desat to 90-91% RA, 2L NC sats increased to 99%. Denies pain. Reports numbness to BLE, able to feel sensation of touch to mid thigh. Unable to wiggle toes or legs at this time. PPP. Calf scd's placed on and running. Drsg c/d/i. Denies numbness. Dinner tray reheated and provided. Pillow between legs for posterior hip precautions per orders. Bed alarm on. Call light within reach.
[2019-07-13] MEDS: IBUPROFEN 400 MG TABLET PO (20:40)
[2019-07-13] MEDS: risperiDONE 0.25 MG TABLET PO (20:40)
[2019-07-13] MEDS: GABAPENTIN 300 MG CAPSULE PO (20:41)
[2019-07-13] MEDS: ASPIRIN EC 81 MG TABLET PO (20:41)
[2019-07-13] MEDS: ACETAMINOPHEN 325 MG TABLET 650 MG PO (20:41)
[2019-07-13] MEDS: clonazePAM 0.5 MG TABLET PO (22:35)
[2019-07-14] VITALS (10 sets, daily range): BP systolic 118–148; BP diastolic 56–85; PULSE 57–67; RESP 15–18; TEMP 36.2–37.1; O2SAT 93–95
[2019-07-14] MEDS: IBUPROFEN 400 MG TABLET PO ×6 (00:03→21:02)
--- NOTE | 2019-07-14 00:21 | PC.NURSE ---
Addendum entered by Ivett Stanley R.N. 07/14/19 06:26: Slept well between repositioning. Continues to deny any pain. Numbness in bilateral feet has resolved. Weight noted to be up 3.9kg this a.m. so will request next shift rezero bed when patient gets up later today and recheck weight. Original Note: Patient is alert and oriented. Goes into great detail about what brought her to hospital. Breath sounds CTA with RA sat of 95%. HRR. Denies nausea. BT present but denies flatus since return from surgery and has not had BM since 07/10. Indwelling catheter is patent; urine is clear jake. Noted to have pink line in fold above umbilicus which is slightly open. Small abrasions noted on right anterior lower leg and right 4th toe. Aquacel dressing to right hip is CDI. Denies any pain at present time. Still has some residual numbness in bilateral feet due to spinal anesthesia. Is being assisted to reposition q2h to prevent skin breakdown. Wearing bilateral calf SCD'. Fall risk score is high and bed alarm is activated.
[2019-07-14] MEDS: LACTATED RINGERS 1,000 ML 125 ML IV (04:42)
[2019-07-14 06:11] LABS: Alanine Aminotransferase 21 IU/L (<35); Albumin 2.9 g/dL (3.5-5.0); Alkaline Phosphatase 36 U/L (38-126); Aspartate Aminotransferase 32 IU/L (14-36); Bilirubin Total 0.2 mg/dL (0.2-1.3); Blood Urea Nitrogen 15 mg/dL (7-17); Calcium 8.4 mg/dL (8.4-10.2); Carbon Dioxide 26 mmol/L (22-32); Chloride 95 mmol/L (98-107); Estimated Glomerular Filt Rate > 60.0 mL/min (>60); Globulin 2.9 g/dL (1.7-4.1); Glucose 113 mg/dL (80-110); HEMOLYSIS < 15 (0-50); Magnesium 1.5 mg/dL (1.6-2.3); Potassium 3.8 mmol/L (3.4-5.1); Sodium 129 mmol/L (137-145); Total Protein 5.8 g/dL (6.3-8.2)
[2019-07-14 06:12] LABS: Add Manual Diff / Slide Review NO; Basophils Absolute Auto 0 /uL (0-100); Basophils Percent Auto 0.2 % (0-2); Eosinophils Absolute Auto 0 /uL (0-450); Eosinophils Percent Auto 0.1 % (2-4); Hematocrit 33.2 % (36-46); Hemoglobin 11.7 g/dL (12.0-16.0); Lymphocytes Absolute Auto 800 /uL (1100-4500); Mean Corpuscular HGB Conc 35.2 % (30-36); Mean Corpuscular Hemoglobin 31.5 PG (26-34); Mean Corpuscular Volume 89.6 fL (80-100); Monocytes Absolute Auto 1000 /uL (0-900); Monocytes Percent Auto 9.4 % (3-14); Neutrophils Absolute Auto 8700 /uL (1500-7000); Neutrophils Percent Auto 82.3 % (50-75); Platelet Count 433 X10^3/uL (150-400); Red Blood Cell Count 3.71 X10^6/uL (4.0-5.2); Red Cell Distribution Width 14.1 % (11.6-14.8); White Blood Cell Count 10.6 X10^3/uL (4.5-11.0)
[2019-07-14] MEDS: THYROID, PORK 60 MG TABLET PO (06:17)
[2019-07-14] MEDS: CEFAZOLIN 2 GM/100 ML FROZ.PIGGY IV (06:17)
--- NOTE | 2019-07-14 07:42 | PM.PN.1 ---
Subjective Subjective Date Patient Seen: 07/14/19 Interval history: Sheila Mckenna is an 83-year-old female with a past medical history significant for hypertension, hyperlipidemia, depression with anxiety, hypothyroidism, osteoporosis, insomnia, tremor, and chronic diarrhea who presented to [facility] after ground level fall with right hip pain at the guidance of her PCP and was found to have a right hip fracture. Patient was transferred to [facility] as Orthopedic surgery was unavailable at [facility]. The patient is resting in bed comfortably. She reports no pain at right hip. Her pain has been controlled with oxycodone. She has no complaints and denies headache, cough, shortness of breath, chest pain, abdominal pain, nausea, vomiting, fever, chills, dysuria, diarrhea or constipation. She is voiding via Navas catheter without difficulty. She has not had a bowel movement since admission and her Imodium was discontinued which she takes for chronic diarrhea and a bowel regimen has been implemented. Plan for physical and occupational therapy today. Exam Vital Signs (past 8 hours): - 07/14/19 04:43 07/14/19 05:00 Temperature 98.1 F Pulse Rate 67 Respiratory Rate 18 Blood Pressure 122/56 L Pulse Oximetry 94 94 Oxygen Delivery Method Room Air Oxygen Flow Rate 0 Narrative Exam Narrative: General: Elderly female sitting in bed and in no acute distress, well-developed, well-nourished, appropriately interactive. HEENT: Normocephalic, atraumatic. External ears without defect. Pupils equal, round, and reactive to light. Anicteric sclerae, moist conjunctivae, and no lid lag. Oropharynx free of erythema and cobble stoning with moist mucosa. Neck: Supple with full range of motion. No lymphadenopathy or thyromegaly. Cardiovascular: Regular rate and rhythm without murmurs, rubs, or gallops appreciated. Pulmonary: Clear to auscultation bilaterally without crackles, wheezes, or rhonchi. Normal respiratory effort with no use of accessory muscles. Abdomen: Soft, bowel sounds present nontender, nondistended. No hepatosplenomegaly or masses appreciated. Extremities: No clubbing, cyanosis, or edema. Right hip with dressing in place C/D/I without surrounding erythema or edema. Distal pulses and movement intact. Skin: Normal temperature, turgor, and texture; no rash, ulcers, or subcutaneous nodules appreciated. Neurological: Cranial nerves grossly intact. Psychiatric: Perseverates on ideas. Normal mood and flat affect. Alert and oriented to person, place, and time. Objective Labs Result Diagrams: 07/14/19 05:44 07/14/19 05:44 Labs: Laboratory Results - last 24 hr 07/14/19 07/14/19 05:44 05:44 WBC 10.6 D RBC 3.71 L Hgb 11.7 L Hct 33.2 L MCV 89.6 MCH 31.5 MCHC 35.2 RDW 14.1 Plt Count 433 H Neut % (Auto) 82.3 H D Lymph % (Auto) 8.0 L [place] % (Auto) 9.4 Eos % (Auto) 0.1 L Baso % (Auto) 0.2 Neut # (Auto) 8700 H Lymph # (Auto) 800 L [place] # (Auto) 1000 H Eos # (Auto) 0 Baso # (Auto) 0 Sodium 129 L Potassium 3.8 Chloride 95 L Carbon Dioxide 26 BUN 15 Creatinine 0.60 Estimated GFR > 60.0 BUN/Creatinine Ratio 25.0 H Glucose 113 H Calcium 8.4 Magnesium 1.5 L Total Bilirubin 0.2 AST 32 ALT 21 Alkaline Phosphatase 36 L Total Protein 5.8 L Albumin 2.9 L Globulin 2.9 Albumin/Globulin Ratio 1.0 Assessment & Plan Assessment & Plan narrative: Sheila Mckenna is an 83-year-old female with a past medical history significant for hypertension, hyperlipidemia, depression with anxiety, hypothyroidism, osteoporosis, insomnia, tremor, and chronic diarrhea who presented to [facility] after ground level fall with right hip pain at the guidance of her PCP and was found to have a right hip fracture. Patient was transferred to [facility] as Orthopedic surgery was unavailable at [facility]. 1. Acute right pathological impacted subcapital femoral neck fracture, status post right hip unipolar partial replacement, present on admission. Active. -Patient sustained ground level fall with immediate right hip pain and minimally able to ambulate. -CT of pelvis demonstrated a nondisplaced impacted subcapital femoral neck fracture, 7 mm sclerotic osseous lesion in the right iliac wing was visible on prior films dated 2009, right severe posterior joint space loss with subchondral sclerosis. -Patient was screened for COVID 19 which was negative and ruled out. -Patient was transferred from [facility] as Orthopedic surgery was unavailable. Dr. Benites of orthopedic surgery was consulted and performed right hip unipolar partial replacement. Continue postoperative management, DVT prophylaxis and pain control per Orthopedic surgery. -Continue aspirin 81 mg twice daily x6 weeks for DVT prophylaxis. -Continue acetaminophen 975 mg scheduled every 8 hours for mild pain, tramadol 50 mg 3 times daily as needed for moderate pain, and oxycodone 5 mg every 3 hours as needed for severe pain. -Continue home medication of gabapentin 300 mg by mouth at bedtime. -Continue calcium and vitamin-D supplementation. Patient will need to be treated for osteoporosis as an outpatient per PCP or Orthopedic surgery. 2. Hypertension, chronic, present on admission. Stable. -Continue home atenolol 50 mg daily. Held home chlorthalidone 25 mg daily as the patient is hyponatremic with sodium level of 128. 3. Hypothyroidism, chronic, present on admission. Stable. -Ordered TSH with reflex, pending. -Continue home TROUBLE TRACER Thyroid 60 mg daily. 4. Chronic diarrhea, present on admission. Stable. -Patient reports she has been referred to gastroenterology but has not yet been evaluated. -Patient takes Imodium 2 mg every other day to control symptoms. Held Imodium due to concern for opiate induced constipation. 5. Insomnia, chronic, present on admission. Stable. -Plan to hold temazepam 15-20 mg daily at bedtime due to concurrent use with narcotics. Ordered and continue melatonin 6 mg at bedtime. -Continue home clonazepam 0.5 mg every 8 hours as needed for anxiety as below and may be used as adjunct for sleep. 6. Depression with anxiety, chronic, present on admission. Stable. -Patient has flat affect and stable mood. She remains cooperative but requires repeat explanations. -Continue home clonazepam 0.5 mg every 8 hours as needed for anxiety, fluoxetine 30 mg daily, lamotrigine 25 mg daily and risperidone 0.25 mg at bedtime. Code status: Full code VTE prophylaxis: ASA, SCDs Disposition: Patient will likely discharge in several days once mobilizing either home with home health versus long-term facility for continued rehabilitation.
[2019-07-14] MEDS: MAGNESIUM SULFATE 2 GM/50 ML PIGGYBACK IV (08:10)
[2019-07-14] MEDS: ACETAMINOPHEN 325 MG TABLET 650 MG PO ×3 (09:19→21:03)
[2019-07-14] MEDS: ASPIRIN EC 81 MG TABLET PO ×2 (09:19→21:04)
[2019-07-14] MEDS: atenoloL 50 MG TABLET PO (09:20)
[2019-07-14] MEDS: CHOLECALCIFEROL (VITAMIN D3) 1,000 UNIT TABLET 2000 UNIT PO (09:20)
[2019-07-14] MEDS: CALCIUM CARBONATE 600 MG TABLET PO (09:20)
[2019-07-14] MEDS: DOCUSATE 100 MG CAPSULE PO (09:21)
[2019-07-14] MEDS: FLUoxetine 10 MG CAPSULE 30 MG PO (09:22)
[2019-07-14] MEDS: lamoTRIgine 25 MG CHEW TABLET PO (09:24)
[2019-07-14] MEDS: OXYCODONE IR 5 MG TABLET PO (09:33)
--- NOTE | 2019-07-14 11:00 | PT.IIE ---
Current Diagnoses Age-related osteoporosis with current pathological fracture, right femur, initial encounter for fracture (07/11/19) Surgery Performed Operation Date: 07/13/19 14:00 Actual Procedures p Hip Hemiarthroplasty (partial unipolar hip replacement)(Right) - Veronica Benites MD Surgical History (Last Reviewed 07/12/19 @ 11:30 by Veronica Benites MD) History of cataract surgery (Acute) History of colonoscopy (Acute) History of lumbar laminectomy (Acute) Medical History (Last Reviewed 07/12/19 @ 11:30 by Veronica Benites MD) Chronic diarrhea (Acute) Depression with anxiety (Acute) Hard of hearing (Acute) Hyperlipidemia (Acute) Hypertension (Acute) Hypothyroidism (Acute) Insomnia (Acute) Osteoporosis (Acute) Tremor (Acute) Physical Therapy Inpatient Evaluation/Re-Eval M1 PT/OT-IP Prior Functional Status Start: 07/14/19 09:24 Freq: NEEDED Status: Active Protocol: Document 07/14/19 10:46 AW (Rec: 07/14/19 12:09 AW [id number]) Medical Review Prior Functional Status Medical History Reviewed Yes Diet/Fluid Consistency Regular Communication WNL Mobility and Gait Pt was independent without assistive device prior to injury. She reports she was walking up to two miles daily. Activities of Daily Living and IADL's Independent with all ADL's. Pt drives, manages her own meds and finances. Social History Household Members none Living Arrangements House Number of Stairs To Enter/Railing? Pt plans to discharge to her [facility] where she will stay in a basement apartment with a level entrance. Employment Status Retired Additional Social History Comment Pt lives alone in [place] but plans to discharge to a friend's basement apartment where she is able to stay as long as needed. She is unsure about bathroom layout but will find out and report back. Those friends will be available and able to assist. She also has several other friends who can come and help her during the day. Pt's daughter lives in [place]. M2 PT-IP Current Condition Start: 07/14/19 09:24 Freq: NEEDED Status: Active Protocol: Document 07/14/19 10:46 AW (Rec: 07/14/19 12:09 AW [id number]) Physical Therapy Current Condition Current Condition Evaluation Date 07/14/19 Treatment Diagnosis GLF, R femoral neck fx s/p unipolar hip replacement, difficulty walking Onset Date 07/05/19 Precautions Posterior Hip Precautions No Hip Flexion > 90 degrees,No Hip Internal Rotation,No Hip Adduction Other Precautions ostoeporosis, fall risk Weight Bearing Status Weight Bearing Status Weight Bear as Tolerated M3 PT-IP Subjective Start: 07/14/19 09:24 Freq: NEEDED Status: Active Protocol: Document 07/14/19 10:46 AW (Rec: 07/14/19 12:09 AW [id number]) Subjective Physical Therapy Visit Type Type Initial Evaluation Visit Start Time 09:50 Visit Stop Time 10:46 Total Visit Minutes 54 Physical Therapy Visit Comments Patient Comments Pt reports minimal pain and is willing to participate with PT Patient Goals Pt hopes to avoid SNF rehab given concerns over COVID-19. Therapy Pain Assessment Pain When Pain Assessed During Mobility Pain Present Pain Present Pain Reported Location Right Hip Intensity 3 Scale Used 1/10 at rest; 3/10 during mobility Pain Management Techniques Apply Cold,Timing of Activity with Medications M4 PT-IP Mobility and Gait Start: 07/14/19 09:24 Freq: NEEDED Status: Active Protocol: Document 07/14/19 10:46 AW (Rec: 07/14/19 12:09 AW [id number]) PT-Bed Mobility Assessment Supine to Sit Supine to Sit Minimal Assistance,1 Person Assistance,Head of Bed Elevated,Bedrails Scooting Scooting to Edge of Bed Moderate Assistance PT-Transfer Assessment Sit to and From Stand Sit to and from Stand Minimal Assistance,1 Person Assistance,Use of Upper Extremities Equipment Transfer Assistive Device Gait Belt,Front Wheeled Walker Orthotic/Prosthetic Devices or Brace: No Transfers Transfer Destination Chair Transfer Technique Stand Step Pivot Transfer Ability Level of Assist Minimal Assistance,Moderate Assistance,1 Person Assistance ,Use of Upper Extremities Comments Mobility Comments Pt sitting up in bed upon PT arrival with BP assessed at 131/63. After education on posterior hip precautions, pt completed supine to sit with HOB elevated ~30 degrees requiring min A x 1. She scooted to EOB with mod A x 1 and sat EOB with BUE support and good attention to hip precautions. BP at EOB was 150 /112. She completed sit to stand min A x 1 with FWW and cues for safe use of BUE and placement of right foot. Step pivot transfer to chair required min-mod A x 1 for management of FWW and max cues for sequencing. PT noted heavy weightbearing through BUE on walker during transfer. Pt sat in the chair with max cues for sequencing, right foot placement, and proper use of BUE to control descent. BP assessed at 128/78 with pt reporting mild dizziness during transfer. She was left in the chair with ice pack applied, call light and all needs within reach. RN notified of pt's position. Gait Assessment Gait Gait Assistance Required: Moderate Assistance Distance (Feet) 3 Able to Maintain Weight Bearing Status Yes During Gait Assistive Devices Assistive Device Gait Belt,Front Wheeled Walker Orthotic/Prosthetic Devices or Brace: No Gait Deviations General Gait Pattern Antalgic,Decreased Stride Length,Decreased Feet Clearance,Flexed Trunk,Step-to Gait Factors Limiting Gait Function Factors Limiting Gait Function Decreased Activity Tolerance, Decreased Strength,Pain,Poor Balance,Poor Safety Awareness Comments Gait Comments See mobility comments Stair Climbing Assessment Comments Stair Climbing Comments Not assessed. PT-Balance Assessment Sitting Balance and Reactions Static Sitting Balance Ability Good Dynamic Sitting Balance Ability Fair Standing Balance and Reactions Static Standing Balance Ability Fair Dynamic Standing Balance Ability Fair Device Used FWW Comments Other Balance Tests/Deviations/Treatment Pt requiring assist to shift : weight for ambulation. SLS not assessed. M5 PT-IP Objective Assessments Start: 07/14/19 09:24 Freq: NEEDED Status: Active Protocol: Document 07/14/19 10:46 AW (Rec: 07/14/19 12:09 AW [id number]) Orientation Orientation/Cognition Level of Alertness Alert Orientation Name,Day of Week,Place, Situation Language Function Ability No Deficits Noted Safety Awareness Decreased Safety Awareness Memory Description No Deficits Noted Gross Range of Motion Lower Extremity ROM Assessment Right Impaired Strength Lower Extremity Strength Assessment Bilaterally Impaired Comments Strength Comments Grossly 4-/5 LLE; R ankle DF/ PF 4-/5 Coordination Assessment Gross Coordination Gross Coordination WNL Sensation Assessment Sensation Gross Sensation WNL Muscle Tone Muscle Tone WNL Yes M6 PT-IP Treatment Start: 07/14/19 09:24 Freq: NEEDED Status: Active Protocol: Document 07/14/19 10:46 AW (Rec: 07/14/19 12:09 AW [id number]) Physical Therapy Treatment Exercises Exercises Ankle Pumps,Gluteal Sets,Quad Sets,Heel Slides Education Education Provided Precautions,Weight Bearing Status,Post-Op Packet,Safety Other Treatments Other Treatment Performed Provided education on role of PT, plan of care, weightbearing status, posterior hip precautions, and safe use of FWW. M7 PT-IP Assessment and Plan Start: 07/14/19 09:24 Freq: NEEDED Status: Active Protocol: Document 07/14/19 10:46 AW (Rec: 07/14/19 12:09 AW [id number]) PT Summary Assessment and Plan Potential Rehabilitation Potential Good Status of Condition at Evaluation Evolving Summary Impairments Pain,ROM,Strength,Balance,Bed Mobility,Transfers,Gait, Activity Tolerance Assessment Summary Tamela is an 84 yo woman seen for PT evaluation on POD1 following right unipolar hip arthroplasty for femoral neck fracture following a GLF on . At baseline, she lives alone, is independent with all functional mobility, and indpendent with I/ADL's. On evaluation, she required min to mod assist and verbal cues for all mobility. She is planning to discharge to a friend's basement apartment. If that ends up being the discharge plan, she will need to identify 1-2 people who will be her primary caregivers and have them participate in caregiver training. If she does not progress to meet functional goals, SNF rehab may be required at discharge from the acute setting. Goals Bed Mobility Goal Standby Assistance Transfer Goal Standby Assistance,Front Wheeled Walker Gait Goal Standby Assistance,Front Wheel Walker Gait Distance 100 Days to Meet Goals 5 Frequency of Treatment Frequency Of Treatment Twice a Day Treatment Plan Physical Therapy Treatment Plan Bed Mobility Training,Transfer Training,Gait Training, Therapeutic Exercise,Balance Retraining,Post Op Education, Discharge Planning,Hot or Cold Pack Other Recommendations and Next Treatment review hip precautions and Focus ther ex, inquire about discharge situation, assess gait with FWW Recommendations To Nursing Amount of Assist Needed 1 Person Assist Discharge Recommendations PT Discharge Recommendations Home with Assistance,SNF Rehab Other Discharge Recommendations discharge to friend's apt with assist vs SNF rehab pending progress Equipment Needed for Home Before will need FWW Discharge
--- NOTE | 2019-07-14 12:45 | CM.DPNOTE ---
Addendum entered by LUZ Triplett 07/14/19 16:04: Spoke w/patient this afternoon to review DCP. Pt in good spirits and states her dtr will be staying w/her in her friend's basement apt and she has contacted friends who can also schedule time to assist patient as needed. Pt agreeable to Home Health but would like to discuss agency preference w/her friends and family. Suggested that dtr come in for cg training w/therapy team and patient states she will ask dtr. This INFANT LEAD TEACHER following closely and will discuss HH preference tomorrow w/ patient. Need F2F signed and HH referral JW Original Note: DCP Cont Reviewed chart to find PT recommending SNF but patient optimistic she will be able to DC yo her friend's basement apt. Abena, PT recommending to patient that she identify 1-2 people to be primary cgs during her recovery to assist or else DC home will not be a safe plan Patient has a bed at [facility] but will need an updated COVID test if she does not DC to [facility] by tomorrow morning. This INFANT LEAD TEACHER will follow closely; therapy sessions this afternoon and tomorrow morning might help to decipher the safest and most feasible DC plan. Home to friend's apt w/ friends/family to assist w/HH vs SNF LUZ Triplett
--- NOTE | 2019-07-14 13:44 | PT.IPTN ---
Current Diagnoses Age-related osteoporosis with current pathological fracture, right femur, initial encounter for fracture (07/11/19) Surgery Performed Operation Date: 07/13/19 14:00 Actual Procedures p Hip Hemiarthroplasty (partial unipolar hip replacement)(Right) - Veronica Benites MD Physical Therapy Treatment Note M2 PT-IP Current Condition Start: 07/14/19 09:24 Freq: NEEDED Status: Active Protocol: Document 07/14/19 10:46 AW (Rec: 07/14/19 12:09 AW [id number]) Physical Therapy Current Condition Current Condition Evaluation Date 07/14/19 Treatment Diagnosis GLF, R femoral neck fx s/p unipolar hip replacement, difficulty walking Onset Date 07/05/19 Precautions Posterior Hip Precautions No Hip Flexion > 90 degrees,No Hip Internal Rotation,No Hip Adduction Other Precautions ostoeporosis, fall risk Weight Bearing Status Weight Bearing Status Weight Bear as Tolerated M3 PT-IP Subjective Start: 07/14/19 09:24 Freq: NEEDED Status: Active Protocol: Document 07/14/19 13:25 AW (Rec: 07/14/19 13:43 AW [id number]) Subjective Physical Therapy Visit Type Type Treatment Note Visit Start Time 12:57 Visit Stop Time 13:21 Total Visit Minutes 24 Number of MED ASST Visits 0 Physical Therapy Visit Comments Patient Comments Pt has not gathered additional information about discharge setting yet but will do so today. Therapy Pain Assessment Pain When Pain Assessed During Mobility Pain Present Pain Present Pain Reported Location Right Hip Intensity 4 Scale Used Numeric (1 - 10) Pain Management Techniques Apply Cold,Timing of Activity with Medications M4 PT-IP Mobility and Gait Start: 07/14/19 09:24 Freq: NEEDED Status: Active Protocol: Document 07/14/19 13:25 AW (Rec: 07/14/19 13:43 AW [id number]) PT-Transfer Assessment Sit to and From Stand Sit to and from Stand Minimal Assistance,1 Person Assistance,Use of Upper Extremities Equipment Transfer Assistive Device Gait Belt,Front Wheeled Walker Orthotic/Prosthetic Devices or Brace: No Transfers Transfer Destination Chair Transfer Technique pt ambulated with FWW Transfer Ability Level of Assist Minimal Assistance,1 Person Assistance,Use of Upper Extremities Comments Mobility Comments Pt has sat up in chair since morning session. She is comfortable and willing to work with PT. She was able to recall only one of her hip precautions (internal rotation ) but easily remembered the others with minimal cues. She completed sit to stand using FWW min A x 1 with cues for sequencing. Once in standing, she tended to lean over the front of the walker. After brief education on safe use of FWW, she was able to correct her standing and dynamic mechanics with the walker. She walked ~50 feet with FWW CGA, including two turns. She demonstrated turns to the left and to the right while being careful to take small steps when turning to the right. Upon return to the room, she stated preference to sit in the chair. She completed the transfer with cueing for sequencing and use of BUE to control descent. Gait Assessment Gait Gait Assistance Required: Contact Guard Assist Distance (Feet) 50 Able to Maintain Weight Bearing Status Yes During Gait Assistive Devices Assistive Device Gait Belt,Front Wheeled Walker Orthotic/Prosthetic Devices or Brace: No Gait Deviations General Gait Pattern Antalgic,Decreased Stride Length,Decreased Feet Clearance,Flexed Trunk,Step-to Gait Factors Limiting Gait Function Factors Limiting Gait Function Decreased Activity Tolerance, Decreased Strength,Pain,Poor Safety Awareness Comments Gait Comments Gait notable for increased trunk flexion but pt was able to correct in response to cues . Pt was hesitant at first but gained confidence with the FWW as distance progressed. Stair Climbing Assessment Comments Stair Climbing Comments Not assessed. M5 PT-IP Objective Assessments Start: 07/14/19 09:24 Freq: NEEDED Status: Active Protocol: Document 07/14/19 10:46 AW (Rec: 07/14/19 12:09 AW [id number]) Orientation Orientation/Cognition Level of Alertness Alert Orientation Name,Day of Week,Place, Situation Language Function Ability No Deficits Noted Safety Awareness Decreased Safety Awareness Memory Description No Deficits Noted Gross Range of Motion Lower Extremity ROM Assessment Right Impaired Strength Lower Extremity Strength Assessment Bilaterally Impaired Comments Strength Comments Grossly 4-/5 LLE; R ankle DF/ PF 4-/5 Coordination Assessment Gross Coordination Gross Coordination WNL Sensation Assessment Sensation Gross Sensation WNL Muscle Tone Muscle Tone WNL Yes M6 PT-IP Treatment Start: 07/14/19 09:24 Freq: NEEDED Status: Active Protocol: Document 07/14/19 13:25 AW (Rec: 07/14/19 13:43 AW [id number]) Physical Therapy Treatment Exercises Exercises Ankle Pumps,Seated Knee Flexion/Extension Education Education Provided Precautions,Safety M7 PT-IP Assessment and Plan Start: 07/14/19 09:24 Freq: NEEDED Status: Active Protocol: Document 07/14/19 13:25 AW (Rec: 07/14/19 13:43 AW [id number]) PT Summary Assessment and Plan Summary Impairments Pain,ROM,Strength,Balance,Bed Mobility,Transfers,Gait, Activity Tolerance Progress Towards Goals Progressing Toward Goals Assessment Summary Pt has good pain control and shows good effort with all activities. Pt appears to have habitual internal rotation of the left hip at rest and was advised to keep a pillow between her legs to encourage neutral or external rotation. She states she will be contacting Manas Arreola to get details about discharge environment which is in his family members home. Pt states she has identified several friends who will be able to stay with her at the 2BR apartment. If she discharges over the weekend, her daughter can accompany her until Thursday evening. PT recommends consult to OT as pt will likely require assist with ADL 's at discharge. Goals Bed Mobility Goal Standby Assistance Transfer Goal Standby Assistance,Front Wheeled Walker Gait Goal Standby Assistance,Front Wheel Walker Gait Distance 100 Days to Meet Goals 5 Frequency of Treatment Frequency Of Treatment Twice a Day Treatment Plan Physical Therapy Treatment Plan Bed Mobility Training,Transfer Training,Gait Training, Therapeutic Exercise,Balance Retraining,Post Op Education, Discharge Planning,Hot or Cold Pack Other Recommendations and Next Treatment review hip precautions and Focus ther ex, inquire about discharge situation, progress gait Recommendations To Nursing Amount of Assist Needed 1 Person Assist Discharge Recommendations PT Discharge Recommendations Home with Assistance,SNF Rehab Other Discharge Recommendations discharge to friend's apt with assist vs SNF rehab pending progress Equipment Needed for Home Before FWW Discharge
--- NOTE | 2019-07-14 15:37 | PC.NURSE ---
Day Shift- Spoke with Dr. Benites at 1320 via phone. Updated regarding current status, pt reporting pain level at 2-3/10 to right hip radiating to right upper thigh to above knee. Okay to remove urinary catheter and staff to mobilize pt as well as PT. Urinary catheter removed at 1425 without difficulty. Peripad and mesh panties placed per pt request. Right hip aquacel dressing CDI, pt denies numbness/tingling to RLE. Ice pack to right hip area intermittently throughout shift. Scheduled Ibuprofen and Tylenol controlling pain to right hip. PRN Oxycodone X1 given at 0935 per pt request in anticipation of PT and first time OOB. Spoke with pt regarding pain management plan that pain meds are scheduled and Oxycodone is as needed for moderate pain management. Pt's pain in afternoon after 2nd PT session was 3/10, pt states is tolerable.
--- NOTE | 2019-07-14 20:02 | PM.PN.1 ---
Subjective Subjective Date Patient Seen: 07/14/19 Time Patient Seen: 20:02 Interval history: She notes that she is doing well overall. She was up with physical therapy for weight-bearing on the leg and had minimal pain. She spent most of the day in the chair and her pain is adequately controlled with Tylenol and ibuprofen. Exam Vital Signs (past 8 hours): - 07/14/19 12:10 07/14/19 12:30 07/14/19 15:43 Temperature 97.8 F 98.0 F Pulse Rate 57 L 59 L Respiratory Rate 16 16 Blood Pressure 122/74 118/66 Pulse Oximetry 94 94 94 07/14/19 16:00 07/14/19 19:56 Temperature 98.8 F Pulse Rate 63 Respiratory Rate 16 Blood Pressure 135/85 Pulse Oximetry 94 94 Oxygen Delivery Method Room Air Oxygen Flow Rate 0 Narrative Exam Narrative: Dressing is dry, legs are soft bilaterally she is neurologically intact distally leg lengths look equal and there is minimal pain with gentle range of motion in the left hip Objective Labs Result Diagrams: 07/14/19 05:44 07/14/19 05:44 Labs: Laboratory Results - last 24 hr 07/14/19 07/14/19 05:44 05:44 WBC 10.6 D RBC 3.71 L Hgb 11.7 L Hct 33.2 L MCV 89.6 MCH 31.5 MCHC 35.2 RDW 14.1 Plt Count 433 H Neut % (Auto) 82.3 H D Lymph % (Auto) 8.0 L [place] % (Auto) 9.4 Eos % (Auto) 0.1 L Baso % (Auto) 0.2 Neut # (Auto) 8700 H Lymph # (Auto) 800 L [place] # (Auto) 1000 H Eos # (Auto) 0 Baso # (Auto) 0 Sodium 129 L Potassium 3.8 Chloride 95 L Carbon Dioxide 26 BUN 15 Creatinine 0.60 Estimated GFR > 60.0 BUN/Creatinine Ratio 25.0 H Glucose 113 H Calcium 8.4 Magnesium 1.5 L Total Bilirubin 0.2 AST 32 ALT 21 Alkaline Phosphatase 36 L Total Protein 5.8 L Albumin 2.9 L Globulin 2.9 Albumin/Globulin Ratio 1.0 Assessment & Plan Assessment & Plan narrative: Doing well status post of right hip unipolar for femoral neck fracture. Continue with physical therapy tomorrow and anticipate discharge to home on Thursday. I spoke to her daughter who will be available for transport and assistance on Thursday. 81 mg b.i.d. Aspirin for DVT prophylaxis at time of discharge.
[2019-07-14] MEDS: SODIUM CHLORIDE 0.9% FLUSH 10 ML IV (21:02)
[2019-07-14] MEDS: GABAPENTIN 300 MG CAPSULE PO (21:04)
[2019-07-14] MEDS: risperiDONE 0.25 MG TABLET PO (21:08)
[2019-07-14] MEDS: clonazePAM 0.5 MG TABLET PO (21:15)
--- NOTE | 2019-07-14 23:37 | PC.NURSE ---
Addendum entered by Ivett Stanley R.N. 07/15/19 06:18: Noted weight to be up 6kg since admission. Bed has been rezeroed and weight rechecked. Patient has no edema. Breath sounds are CTA and has no dyspnea. Frantz JACINTO, informed. Addendum entered by Ivett Stanley R.N. 07/15/19 04:54: Up to bathroom x 2 with walker and 1 assist. Was incontinent of urine plus voided unmeasured along with small pebble like stool the first time and now voided 500cc urine and was continent. States pain is 5/10 this morning; medicated with scheduled Ibuprofen but is aware she can also have Oxycodone later if pain relief not sufficient. Original Note: Patient is alert and oriented. Breath sounds CTA with RA sat of 93%. HRR. Denies nausea. BT present and has passed a little gas but no BM since 07/10; plans to take stool softener in a.m. Has voided since catheter removal and denies dysuria, frequency or urgency; is continent. Able to assist with repositioning in bed. Dressing to right hip is CDI. No new skin issues noted tonight. Is now out of bed with walker and 1 assist and doing well. States pain is minimal at 2/10 and declines need for pain medication. Wearing bilateral calf SCD's. Fall risk score is high and bed alarm is activated.
[2019-07-15] VITALS (8 sets, daily range): BP systolic 119–139; BP diastolic 66–78; PULSE 56–75; RESP 16–18; TEMP 36.4–37.3; O2SAT 92–95
[2019-07-15] MEDS: IBUPROFEN 400 MG TABLET PO ×4 (04:51→21:23)
[2019-07-15 05:46] LABS: Add Manual Diff / Slide Review NO; Basophils Absolute Auto 0 /uL (0-100); Basophils Percent Auto 0.6 % (0-2); Eosinophils Absolute Auto 300 /uL (0-450); Eosinophils Percent Auto 3.9 % (2-4); Hematocrit 34.5 % (36-46); Hemoglobin 12.1 g/dL (12.0-16.0); Lymphocytes Absolute Auto 600 /uL (1100-4500); Lymphocytes Percent Auto 7.6 % (25-40); Mean Corpuscular HGB Conc 34.9 % (30-36); Mean Corpuscular Hemoglobin 31.6 PG (26-34); Mean Corpuscular Volume 90.5 fL (80-100); Monocytes Absolute Auto 700 /uL (0-900); Monocytes Percent Auto 8.6 % (3-14); Neutrophils Absolute Auto 6100 /uL (1500-7000); Neutrophils Percent Auto 79.3 % (50-75); Platelet Count 402 X10^3/uL (150-400); Red Blood Cell Count 3.81 X10^6/uL (4.0-5.2); Red Cell Distribution Width 14.5 % (11.6-14.8); White Blood Cell Count 7.7 X10^3/uL (4.5-11.0)
[2019-07-15 05:51] LABS: BUN Creatinine Ratio 25.4 (6-22); Blood Urea Nitrogen 16 mg/dL (7-17); Calcium 8.7 mg/dL (8.4-10.2); Carbon Dioxide 32 mmol/L (22-32); Chloride 93 mmol/L (98-107); Estimated Glomerular Filt Rate > 60.0 mL/min (>60); Glucose 97 mg/dL (80-110); HEMOLYSIS < 15 (0-50); Magnesium 1.7 mg/dL (1.6-2.3); Potassium 3.9 mmol/L (3.4-5.1); Sodium 132 mmol/L (137-145)
[2019-07-15] MEDS: THYROID, PORK 60 MG TABLET PO (06:10)
[2019-07-15 06:57] LABS: TSH w/ Reflex to FT4 9.22 uIU/mL (0.47-4.68)
[2019-07-15 07:30] LABS: Free T4, Direct Thyroxine 0.95 ng/dL (0.78-2.19)
[2019-07-15] MEDS: ACETAMINOPHEN 325 MG TABLET 650 MG PO ×2 (08:12→21:24)
[2019-07-15] MEDS: FLUoxetine 10 MG CAPSULE 30 MG PO (08:13)
[2019-07-15] MEDS: ASPIRIN EC 81 MG TABLET PO ×2 (08:13→21:24)
[2019-07-15] MEDS: lamoTRIgine 25 MG CHEW TABLET PO (08:13)
[2019-07-15] MEDS: atenoloL 50 MG TABLET PO (08:13)
[2019-07-15] MEDS: CHOLECALCIFEROL (VITAMIN D3) 1,000 UNIT TABLET 2000 UNIT PO (08:13)
[2019-07-15] MEDS: CALCIUM CARBONATE 600 MG TABLET PO (08:13)
[2019-07-15] MEDS: DOCUSATE 100 MG CAPSULE PO ×2 (08:15→21:24)
[2019-07-15] MEDS: SODIUM CHLORIDE 0.9% FLUSH 10 ML IV ×2 (08:16→21:24)
--- NOTE | 2019-07-15 10:40 | PT.IPTN ---
Current Diagnoses Age-related osteoporosis with current pathological fracture, right femur, initial encounter for fracture (07/11/19) Surgery Performed Operation Date: 07/13/19 14:00 Actual Procedures p Hip Hemiarthroplasty (partial unipolar hip replacement)(Right) - Veronica Benites MD Physical Therapy Treatment Note M2 PT-IP Current Condition Start: 07/14/19 09:24 Freq: NEEDED Status: Active Protocol: Document 07/14/19 10:46 AW (Rec: 07/14/19 12:09 AW [id number]) Physical Therapy Current Condition Current Condition Evaluation Date 07/14/19 Treatment Diagnosis GLF, R femoral neck fx s/p unipolar hip replacement, difficulty walking Onset Date 07/05/19 Precautions Posterior Hip Precautions No Hip Flexion > 90 degrees,No Hip Internal Rotation,No Hip Adduction Other Precautions ostoeporosis, fall risk Weight Bearing Status Weight Bearing Status Weight Bear as Tolerated M3 PT-IP Subjective Start: 07/14/19 09:24 Freq: NEEDED Status: Active Protocol: Document 07/15/19 09:58 SP (Rec: 07/15/19 13:10 SP [id number]) Subjective Physical Therapy Visit Type Type Treatment Note Visit Start Time 09:58 Visit Stop Time 10:40 Total Visit Minutes 42 Number of FOREST RESOURCES PROFESSOR Visits 1 Physical Therapy Visit Comments Patient Comments Pt willing to work with PT today. Pt stated believes she might be leaving tomorrow and staying at a him tech's house for now (no stairs but has 10 at her home BHR), daughter and friend will be staying with her. Pt planned caregiver training 07/15 at 11am, nursing notified to pass along if DC ordered. Therapy Pain Assessment Pain Present Pain Present Denied Pain M4 PT-IP Mobility and Gait Start: 07/14/19 09:24 Freq: NEEDED Status: Active Protocol: Document 07/15/19 09:58 SP (Rec: 07/15/19 13:10 SP [id number]) PT-Bed Mobility Assessment Supine to Sit Supine to Sit Contact Guard Assistance, Bedrails Scooting Scooting to Edge of Bed Standby Assistance PT-Transfer Assessment Sit to and From Stand Sit to and from Stand Contact Guard Assistance,1 Person Assistance,Use of Upper Extremities Equipment Transfer Assistive Device Gait Belt,Front Wheeled Walker Orthotic/Prosthetic Devices or Brace: No Transfers Transfer Technique pt ambulated with FWW Transfer Ability Level of Assist Contact Guard Assistance,Use of Upper Extremities Comments Mobility Comments Pt was laying in bed when arrived, agreeable to work with FOREST RESOURCES PROFESSOR. Pt recalled 2/3 precautions no IR and not bending >90deg hip flexion. Pt was able to complete supine post op exercises with cuing and use of gait belt FOREST RESOURCES PROFESSOR placed on her foot for self assist/performance, SBA, see ex comments. Pt completed supine to sitting usign gait belt herself for RLE repositioning to EOB and BUE WB into bed to transition to sitting and scoot to EOB. Sit to stand CGA with cuing for proper hand placement to push up from seated surface to stand and reach back prior to sitting for safety while using FWW for support with good follow through but not consistant. Pt was able to walk room distance bed to room bench and back approx 14 ft with cuing for RLE no IR durign pivot using FWW for support SBA, occasional cuing for upright posture and UE WB through FWW as tolerated with verbal understanding. Pt was able to walk further distance into hallway to stairs and back, wc follow but not needed SBA. Pt willing to assess stair mgt for awareness when does return home but is going to [facility] with no stairs to mgt for now. See stair comments. Pt was seated in chair when returned with all needs in reach, chair alarm donned. Gait Assessment Gait Gait Assistance Required: Standby Assistance,Contact Guard Assist Distance (Feet) 250 Able to Maintain Weight Bearing Status Yes During Gait Assistive Devices Assistive Device Gait Belt,Front Wheeled Walker Orthotic/Prosthetic Devices or Brace: No Gait Deviations General Gait Pattern Antalgic,Decreased Stride Length,Decreased Feet Clearance,Flexed Trunk Factors Limiting Gait Function Factors Limiting Gait Function Decreased Strength,Poor Safety Awareness Comments Gait Comments Pt was able to walk further distance using FWW CGA initially then sBA approx 40 ft in room and 250 ft in hallway, noted increased stride length and foot clearance as distance progressed. Cued occasionally for spacial awareness in hallway and away from wall, no IR during turns to R, upright posture and no needing heavy WB BUE on to FWW during RLE WB . Stair Climbing Assessment Evaluation Level of Assist On Stairs Contact Guard Assistance Devices Stair Climbing Assistive Devices Left Railing,Right Railing Technique/Endurance Stair Climbing Direction Ascend and Descend Stair Climbing Technique Step to Step Number of Steps Climbed 3 Stair Climbing Set # Repetitions (reps) 1 Comments Stair Climbing Comments Pt was able to complete 3 stair mgt using BHR but has 10 stairs at home. Pt stated not going home but the him tech's house ground level no stairs for now, and daughter or friend will be there to assist her. Pt stated glad she can can do the stairs but not full 10 has at home right now. PT-Balance Assessment Sitting Balance and Reactions Static Sitting Balance Ability Good Dynamic Sitting Balance Ability Fair Standing Balance and Reactions Static Standing Balance Ability Fair Dynamic Standing Balance Ability Fair Device Used FWW M5 PT-IP Objective Assessments Start: 07/14/19 09:24 Freq: NEEDED Status: Active Protocol: Document 07/14/19 10:46 AW (Rec: 07/14/19 12:09 AW [id number]) Orientation Orientation/Cognition Level of Alertness Alert Orientation Name,Day of Week,Place, Situation Language Function Ability No Deficits Noted Safety Awareness Decreased Safety Awareness Memory Description No Deficits Noted Gross Range of Motion Lower Extremity ROM Assessment Right Impaired Strength Lower Extremity Strength Assessment Bilaterally Impaired Comments Strength Comments Grossly 4-/5 LLE; R ankle DF/ PF 4-/5 Coordination Assessment Gross Coordination Gross Coordination WNL Sensation Assessment Sensation Gross Sensation WNL Muscle Tone Muscle Tone WNL Yes M6 PT-IP Treatment Start: 07/14/19 09:24 Freq: NEEDED Status: Active Protocol: Document 07/15/19 09:58 SP (Rec: 07/15/19 13:10 SP [id number]) Physical Therapy Treatment Exercises Exercises Ankle Pumps,Gluteal Sets,Quad Sets,Heel Slides,Supine Hip Abduction Education Education Provided Precautions,Weight Bearing Status,Post-Op Packet,Safety Other Treatments Other Treatment Performed Post-op exercise review, bed mobility, transfers, gait further distance using FWW, WB precautions. M7 PT-IP Assessment and Plan Start: 07/14/19 09:24 Freq: NEEDED Status: Active Protocol: Document 07/15/19 09:58 SP (Rec: 07/15/19 13:10 SP [id number]) PT Summary Assessment and Plan Potential Rehabilitation Potential Good Status of Condition at Evaluation Evolving Summary Impairments Pain,ROM,Strength,Balance,Bed Mobility,Transfers,Gait, Activity Tolerance Progress Towards Goals Progressing Toward Goals Assessment Summary Pt has good pain control and shows good effort with all activities. Pt appears to have habitual internal rotation of the left hip at rest and was advised to keep a pillow between her legs to encourage neutral or external rotation. Pt stated contacted Manas Arreola regarding discharge environment which is in his family members home, no stairs . Pt states her daughter will help on weekends and a friend will stay with her weekdays at the 2BR apartment. Pt scheduled caregiver training with her daughter and friend at 11am. Pt will require assist with ADL's at discharge. Goals Bed Mobility Goal Standby Assistance Transfer Goal Standby Assistance,Front Wheeled Walker Gait Goal Standby Assistance,Front Wheel Walker Gait Distance 100 Days to Meet Goals 5 Frequency of Treatment Frequency Of Treatment Twice a Day Treatment Plan Physical Therapy Treatment Plan Bed Mobility Training,Transfer Training,Gait Training, Therapeutic Exercise,Balance Retraining,Post Op Education, Discharge Planning,Hot or Cold Pack Other Recommendations and Next Treatment review hip precautions and Focus ther ex, progress gait, bed mobililty Recommendations To Nursing Amount of Assist Needed 1 Person Assist Discharge Recommendations PT Discharge Recommendations Home with Assistance,Home Health Other Discharge Recommendations discharge to friend's appt with daughter/ friend assist. Equipment Needed for Home Before FWW Discharge Transportation Needs at Discharge Private Vehicle
--- NOTE | 2019-07-15 11:38 | P.PN_ITS ---
Subjective Subjective Date Patient Seen: 07/15/19 Time Patient Seen: 11:39 Interval history: Sheila Mckenna is an 83-year-old female with a past medical history significant for hypertension, hyperlipidemia, depression with anxiety, hypothyroidism, osteoporosis, insomnia, tremor, and chronic diarrhea who presented to [facility] after ground level fall with right hip pain at the guidance of her PCP and was found to have a right hip fracture. Patient was transferred to [facility] as Orthopedic surgery was unavailable at [facility]. The patient is up to bedside chair and comfortable today. She walked with PT about 250 ft and climbed stairs. Her pain has been controlled with oxycodone. She has no complaints and denies headache, cough, shortness of breath, chest pain, abdominal pain, nausea, vomiting, fever, chills, dysuria, diarrhea or constipation. Plan is for caregiver training tomorrow AM and then discharge home with home health. Exam Vital Signs (past 8 hours): - 07/15/19 03:45 07/15/19 08:05 07/15/19 08:09 Temperature 98.0 F 98.5 F Pulse Rate 60 75 Respiratory Rate 16 18 Blood Pressure 139/76 136/67 Pulse Oximetry 94 92 92 Oxygen Delivery Method Room Air Oxygen Flow Rate 0 Narrative Exam Narrative: General: Elderly female sitting in bed and in no acute distress, well-developed, well-nourished, appropriately interactive. HEENT: Normocephalic, atraumatic. External ears without defect. Anicteric sclerae, moist conjunctivae, and no lid lag. Neck: Supple with full range of motion. No lymphadenopathy or thyromegaly. Cardiovascular: Regular rate and rhythm without murmurs, rubs, or gallops appreciated. Pulmonary: Clear to auscultation bilaterally without crackles, wheezes, or rhonchi. Normal respiratory effort with no use of accessory muscles. Abdomen: Soft, bowel sounds present nontender, nondistended. No hepatosplenomegaly or masses appreciated. Extremities: No clubbing, cyanosis, or edema. Right hip with dressing in place C/D/I without surrounding erythema or edema. Distal pulses and movement intact. Skin: Normal temperature, turgor, and texture; no rash, ulcers, or subcutaneous nodules appreciated. Neurological: Cranial nerves grossly intact. no focal neurological deficits Psychiatric: Normal mood and flat affect. Alert and oriented to person, place, and time. Objective Labs Result Diagrams: 07/15/19 05:29 07/15/19 05:29 Labs: Laboratory Results - last 24 hr 07/15/19 07/15/19 07/15/19 05:29 05:29 05:29 WBC 7.7 RBC 3.81 L Hgb 12.1 Hct 34.5 L MCV 90.5 MCH 31.6 MCHC 34.9 RDW 14.5 Plt Count 402 H Neut % (Auto) 79.3 H Lymph % (Auto) 7.6 L [place] % (Auto) 8.6 Eos % (Auto) 3.9 Baso % (Auto) 0.6 Neut # (Auto) 6100 Lymph # (Auto) 600 L [place] # (Auto) 700 Eos # (Auto) 300 Baso # (Auto) 0 Sodium 132 L Potassium 3.9 Chloride 93 L Carbon Dioxide 32 BUN 16 Creatinine 0.63 Estimated GFR > 60.0 BUN/Creatinine Ratio 25.4 H Glucose 97 Calcium 8.7 Magnesium 1.7 TSH 9.22 H Free T4 0.95 Assessment & Plan Assessment & Plan narrative: Sheila Mckenna is an 83-year-old female with a past medical history significant for hypertension, hyperlipidemia, depression with anxiety, hypothyroidism, osteoporosis, insomnia, tremor, and chronic diarrhea who presented to [facility] after ground level fall with right hip pain at the guidance of her PCP and was found to have a right hip fracture. Patient was transferred to [facility] as Orthopedic surgery was unavailable at [facility]. 1. Acute right pathological impacted subcapital femoral neck fracture, status post right hip unipolar partial replacement, present on admission. Active. -Patient sustained ground level fall with immediate right hip pain and minimally able to ambulate. -CT of pelvis demonstrated a nondisplaced impacted subcapital femoral neck fracture, 7 mm sclerotic osseous lesion in the right iliac wing was visible on prior films dated 2009, right severe posterior joint space loss with subchondral sclerosis. -Patient was screened for COVID 19 which was negative and ruled out. -Patient was transferred from [facility] as Orthopedic surgery was unavailable. Dr. Benites of orthopedic surgery was consulted and performed right hip unipolar partial replacement. Continue postoperative management, DVT prophylaxis and pain control per Orthopedic surgery. -Continue aspirin 81 mg twice daily x6 weeks for DVT prophylaxis. -Continue acetaminophen 975 mg scheduled every 8 hours for mild pain, tramadol 50 mg 3 times daily as needed for moderate pain, and oxycodone 5 mg every 3 hours as needed for severe pain. -Continue home medication of gabapentin 300 mg by mouth at bedtime. -Continue calcium and vitamin-D supplementation. Patient will need to be treated for osteoporosis as an outpatient per PCP or Orthopedic surgery. 2. Hypertension, chronic, present on admission. Stable. -Continue home atenolol 50 mg daily. Held home chlorthalidone 25 mg daily as the patient is hyponatremic with sodium level of 128. 3. Hypothyroidism, chronic, present on admission. Stable. -TSH elevated at 9, normal free T4, recommend repeat TSH evaluation as an outpatient. -Continue home GERENTOLOGICAL PHYSIOTHERAPIST Thyroid 60 mg daily. 4. Chronic diarrhea, present on admission. Stable. -Patient reports she has been referred to gastroenterology but has not yet been evaluated. -Patient takes Imodium 2 mg every other day to control symptoms. Held Imodium due to concern for opiate induced constipation. 5. Insomnia, chronic, present on admission. Stable. -Plan to hold temazepam 15-20 mg daily at bedtime due to concurrent use with narcotics. Ordered and continue melatonin 6 mg at bedtime. -Continue home clonazepam 0.5 mg every 8 hours as needed for anxiety as below and may be used as adjunct for sleep. 6. Depression with anxiety, chronic, present on admission. Stable. -Patient has flat affect and stable mood. She remains cooperative but requires repeat explanations. -Continue home clonazepam 0.5 mg every 8 hours as needed for anxiety, fluoxetine 30 mg daily, lamotrigine 25 mg daily and risperidone 0.25 mg at bedtime. Code status: Full code VTE prophylaxis: ASA, SCDs Disposition: Patient will likely discharge tomorrow AM home with home health and continued PT/OT after caregiver training.
--- NOTE | 2019-07-15 11:42 | PC.NURSE ---
Day Shift- Pt A&OX4, able to make needs known using call light. Has frequent calls in/out from friends and family. Rates 3/10 pain to right hip extending to right thigh aching. Controlled with scheduled Ibuprofen and Tylenol. OOB with 1PA using walker to BR and ambulated in hallway with PT around 1030 and settled back into recliner chair. Plan for Caregiver Training session with PT tomorrow Saturday 07/15 at 1100 prior to discharge. Right hip aquacel dressing CDI, denies numbness or tingling to BLE.
--- NOTE | 2019-07-15 13:00 | OT.IP.EVAL ---
Current Diagnoses Age-related osteoporosis with current pathological fracture, right femur, initial encounter for fracture (07/11/19) Surgery Performed Operation Date: 07/13/19 14:00 Actual Procedures p Hip Hemiarthroplasty (partial unipolar hip replacement)(Right) - Veronica Benites MD Past Medical History (Last Reviewed 07/12/19 @ 11:30 by Veronica Benites MD) Chronic diarrhea (Acute) Depression with anxiety (Acute) Hard of hearing (Acute) Hyperlipidemia (Acute) Hypertension (Acute) Hypothyroidism (Acute) Insomnia (Acute) Osteoporosis (Acute) Tremor (Acute) Surgical History (Last Reviewed 07/12/19 @ 11:30 by Veronica Benites MD) History of cataract surgery (Acute) History of colonoscopy (Acute) History of lumbar laminectomy (Acute) Occupational Therapy Inpatient Evaluation/Re-Eval M1 PT/OT-IP Prior Functional Status Start: 07/14/19 09:24 Freq: NEEDED Status: Active Protocol: Document 07/15/19 14:26 CGR (Rec: 07/15/19 14:39 CGR [id number]) Medical Review Prior Functional Status Medical History Reviewed Yes Diet/Fluid Consistency Regular Communication WNL Mobility and Gait Pt was independent without assistive device prior to injury. She reports she was walking up to two miles daily. Activities of Daily Living and IADL's Independent with all ADL's. Pt drives, manages her own meds and finances. Social History Household Members none Living Arrangements House Number of Stairs To Enter/Railing? Pt plans to discharge to her freinds' home where she will stay in a basement apartment with a level entrance. Home Environment High Toilet,Walk in Shower, Built-In Shower Seat Employment Status Retired Additional Social History Comment Pt lives alone in [place] in a second floor apt with 10 steps to enter, walk in sohwer and standard height toilet but plans to discharge to a friend's basement apartment where she is able to stay as long as needed. Information above is for the friends ADA complient apt. Those friends will be available and able to assist. She also has several other friends who can come and help her during the day. Pt's daughter lives in [place]. M2 OT-IP Current Condition Start: 07/15/19 14:26 Freq: Status: Active Protocol: Document 07/15/19 14:26 CGR (Rec: 07/15/19 14:39 CGR [id number]) Occupational Therapy Current Condition Current Condition Evaluation Date 07/15/19 Treatment Diagnosis R hip unipolar posterior hip replacement. Post Operative Precautions Posterior Hip Precautions No Hip Flexion > 90 degrees,No Hip Internal Rotation,No Hip Adduction Weight Bearing Status Weight Bearing Status Weight Bear as Tolerated M3 OT- IP Subjective and Pain Start: 07/15/19 14:26 Freq: Status: Active Protocol: Document 07/15/19 14:26 CGR (Rec: 07/15/19 14:39 CGR [id number]) OT- Subjective Occupational Therapy Visit Type Type Initial Evaluation Visit Start Time 11:45 Visit Stop Time 13:00 Total Visit Minutes 75 OT Pain Assessment Pain When Pain Assessed At Rest Pain Present Pain Present Pain Reported Location Right Hip Intensity 3 Scale Used Numeric (1 - 10) Management Techniques Re-positioning,Timing of Activity with Medications M4 OT- IP ADL's Start: 07/15/19 14:26 Freq: Status: Active Protocol: Document 07/15/19 14:26 CGR (Rec: 07/15/19 14:39 CGR [id number]) OT [id number] General Evaluation Self-Feeding Ability Independent Comments OT Self-Feeding Comments Pt finishing up lunch when OT entered. OT ADL-Grooming General Evaluation Grooming Ability Standby Assistance Areas Needing Assistance Combing/Brushing Hair,Face Washing Comments OT Grooming Comments Standing at sink OT ADL-Oral Care General Eval Oral Care Ability Standby Assistance Areas of Assistance Brushing Teeth Comments Oral Care Comments standing at sink OT ADL-Dressing General Eval Upper Body Dressing Ability Independent Lower Body Dressing Ability Moderate Assistance Areas Needing Assistance Underpants/Brief,Socks Assistive Devices Dressing Assistive Devices Director [facility],Sock Aid Comments OT Dressing Comments Provided with hip kit and educated on use of hip kit for LB dressing. Pt needed significant extra time fro processing and motor planning of the task. Will need follow up. OT ADL-Toileting General Evaluation Toileting Ability Standby Assistance Devices Toileting Assistive Devices Grab Bars OT ADL-Bathing Comments OT Bathing Comments Not performed in this session. M5 OT- IP IADL's Start: 07/15/19 14:26 Freq: Status: Active Protocol: Document 07/15/19 14:26 CGR (Rec: 07/15/19 14:39 R [id number]) OT-Instrumental Activities of Daily Living Deficits IADL Deficits Identified Deficits Home Safety Awareness Awareness of Need for Assistance at Home Good Awareness Ability to Problem Solve Emergency Able to Problem Solve Situations Medication Management Medication Management Comments d/t cognitive processing issues with LB dressing, there is some concern for pt managing new medications without supervision. M6 OT- IP Functional Cognition Start: 07/15/19 14:26 Freq: Status: Active Protocol: Document 07/15/19 14:26 CGR (Rec: 07/15/19 14:39 R [id number]) Cognitive Factors Limiting Selfcare Function Cognitive Ability Level of Alertness Alert Patient Orientation Name,Age,Birthday,Month,Date, Year,Day of Week,Place, Situation Attention Span Ability Capable of Focused Attention, Capable of Sustained Attention Ability to Follow Commands Able to Follow One Step Commands with Increased Time, Able to Follow One Step Commands with Repetition Memory Description No Deficits Noted Safety Awareness No Deficits Noted Problem Solving Ability Unable to Identify Errors, Needs Assist to Identify Solutions OT- Vision and Hearing OT- Hearing Assessment OT- Hearing Assessment WFL OT- Vision Assessment Vision History Cataracts Visual Acuity WFL Visual Attentiveness WFL Occular Pursuits WFL Visual Convergence WFL M7 OT- IP Mobility and Balance Start: 07/15/19 14:26 Freq: Status: Active Protocol: Document 07/15/19 14:26 CGR (Rec: 07/15/19 14:39 R [id number]) OT-Transfer Assessment Sit to and From Stand Sit to and from Stand Contact Guard Assistance Transfers Transfer Ability Contact Guard Assistance Technique Transfer Destination Chair Transfer Technique Stand Step Pivot Devices Transfer Assistive Devices Gait Belt,Front Wheeled Walker OT- Gait Assessment Gait Gait Assistance Required: Contact Guard Assist Assistive Devices Assistive Device Gait Belt,Front Wheeled Walker OT- Balance Assessment Sitting Balance and Reactions Static Sitting Balance Ability Good Dynamic Sitting Balance Ability Fair M8 OT- IP Objective Assessments Start: 07/15/19 14:26 Freq: Status: Active Protocol: Document 07/15/19 14:26 CGR (Rec: 07/15/19 14:39 R [id number]) OT Gross Range of Motion Upper Extremity Range of Motion Assessment Within Functional Limits OT Strength Upper Extremity Strength Assessment Within Functional Limits Comments Strength Comments 4/5 OT- Coordination Assessment Upper Extremity Finger to Nose Test Within Functional Limits Finger Tapping Test Within Functional Limits OT-Muscle Tone Assessment Muscle Tone WNL Yes OT Sensation Assessment Edema Edema Absent M9 OT- IP Assessment and Plan Start: 07/15/19 14:26 Freq: Status: Active Protocol: Document 07/15/19 14:26 CGR (Rec: 07/15/19 14:39 CGR [id number]) OT Summary Assessment and Plan Potential Rehabilitation Potential Good Analytic Complexity at Evaluation Low Summary OT Impairments Pain,Strength,Coordination, Functional Cognition, Functional Mobility,Dressing, Toileting,Bathing,Toilet Transfers,Shower Transfers, Activity Tolerance Progress Towards Goals Progressing Toward Goals Goals Grooming Goal Independent Dressing Goal Independent,Director Day Care Center,Sock Aid Toileting Goal Independent Bathing Goal Independent Toilet Transfer Goal Independent Shower Transfer Goal Independent Days to Meet Goals 2 Frequency of Treatment Frequency Of Treatment Once a Day Treatment Plan OT Treatment Plan ADL Training,Functional Cognition Training,Functional Mobility,Patient/Family Education,Discharge Planning Other Treatment Recommendations and Next review LB dressing with Treatment Focus equipment and shower. Discharge Recommendations OT Discharge Recommendations Home with Assistance Other Discharge Recommendations At this time, pt will need assist with LB dressing and bathing at home. Home Equipment Needs Walker Transportation Needs at Discharge Private Vehicle
--- NOTE | 2019-07-15 14:48 | PT.IPTN ---
Current Diagnoses Age-related osteoporosis with current pathological fracture, right femur, initial encounter for fracture (07/11/19) Surgery Performed Operation Date: 07/13/19 14:00 Actual Procedures p Hip Hemiarthroplasty (partial unipolar hip replacement)(Right) - Veronica Benites MD Physical Therapy Treatment Note M2 PT-IP Current Condition Start: 07/14/19 09:24 Freq: NEEDED Status: Active Protocol: Document 07/14/19 10:46 AW (Rec: 07/14/19 12:09 AW [id number]) Physical Therapy Current Condition Current Condition Evaluation Date 07/14/19 Treatment Diagnosis GLF, R femoral neck fx s/p unipolar hip replacement, difficulty walking Onset Date 07/05/19 Precautions Posterior Hip Precautions No Hip Flexion > 90 degrees,No Hip Internal Rotation,No Hip Adduction Other Precautions ostoeporosis, fall risk Weight Bearing Status Weight Bearing Status Weight Bear as Tolerated M3 PT-IP Subjective Start: 07/14/19 09:24 Freq: NEEDED Status: Active Protocol: Document 07/15/19 14:20 SP (Rec: 07/15/19 15:59 SP [id number]) Subjective Physical Therapy Visit Type Type Treatment Note Visit Start Time 14:20 Visit Stop Time 14:48 Total Visit Minutes 28 Number of ELECTRICAL ACCESSORIES I ASSEMBLER Visits 2 Physical Therapy Visit Comments Patient Comments Pt willing to work with PT. Therapy Pain Assessment Pain Present Pain Present Denied Pain M4 PT-IP Mobility and Gait Start: 07/14/19 09:24 Freq: NEEDED Status: Active Protocol: Document 07/15/19 14:20 SP (Rec: 07/15/19 15:59 SP [id number]) PT-Bed Mobility Assessment Sit to Supine Sit to Supine Standby Assistance Scooting Scooting Up and Down in Bed Standby Assistance PT-Transfer Assessment Sit to and From Stand Sit to and from Stand Contact Guard Assistance,1 Person Assistance,Use of Upper Extremities Equipment Transfer Assistive Device Gait Belt,Front Wheeled Walker Orthotic/Prosthetic Devices or Brace: No Transfers Transfer Destination Bed Transfer Technique Stand Step Pivot Transfer Ability Level of Assist Contact Guard Assistance,Use of Upper Extremities Comments Mobility Comments Pt was still sitting up in chair from am treatment when arrived. Reviewed seated exercises, see comments. Sit to stand from chair with occasional cuing proper hand placement for safety usign FWW , CGA. Pt complete standing march reps pre gait ex. Pt ambulated into hallway approx 200 ft with improvement in posture and increased stride and foot clearance, decreased BUE WB on FWW. Pt requested restign in bed when returned. Completed sitting to supine with gait belt assist on RLE to positioned onto bed, then self lateral scoot to center in bed via bridging instructed previous treatment. Pt had all needs and bed alarm armed befroe left. Gait Assessment Gait Gait Assistance Required: Standby Assistance,Contact Guard Assist Distance (Feet) 200 Able to Maintain Weight Bearing Status Yes During Gait Assistive Devices Assistive Device Gait Belt,Front Wheeled Walker Orthotic/Prosthetic Devices or Brace: No Gait Deviations General Gait Pattern Antalgic,Decreased Stride Length,Decreased Feet Clearance,Flexed Trunk Factors Limiting Gait Function Factors Limiting Gait Function Decreased Activity Tolerance, Decreased Strength,Poor Safety Awareness Comments Gait Comments See mobility comments. Stair Climbing Assessment Comments Stair Climbing Comments To tired this pm. PT-Balance Assessment Sitting Balance and Reactions Static Sitting Balance Ability Good Dynamic Sitting Balance Ability Fair Standing Balance and Reactions Static Standing Balance Ability Fair Dynamic Standing Balance Ability Fair Device Used FWW M5 PT-IP Objective Assessments Start: 07/14/19 09:24 Freq: NEEDED Status: Active Protocol: Document 07/14/19 10:46 AW (Rec: 07/14/19 12:09 AW [id number]) Orientation Orientation/Cognition Level of Alertness Alert Orientation Name,Day of Week,Place, Situation Language Function Ability No Deficits Noted Safety Awareness Decreased Safety Awareness Memory Description No Deficits Noted Gross Range of Motion Lower Extremity ROM Assessment Right Impaired Strength Lower Extremity Strength Assessment Bilaterally Impaired Comments Strength Comments Grossly 4-/5 LLE; R ankle DF/ PF 4-/5 Coordination Assessment Gross Coordination Gross Coordination WNL Sensation Assessment Sensation Gross Sensation WNL Muscle Tone Muscle Tone WNL Yes M6 PT-IP Treatment Start: 07/14/19 09:24 Freq: NEEDED Status: Active Protocol: Document 07/15/19 14:20 SP (Rec: 07/15/19 15:59 SP [id number]) Physical Therapy Treatment Exercises Exercises Ankle Pumps,Seated Knee Flexion/Extension Education Education Provided Precautions,Weight Bearing Status,Post-Op Packet,Safety Other Treatments Other Treatment Performed seated marching, standing marching M7 PT-IP Assessment and Plan Start: 07/14/19 09:24 Freq: NEEDED Status: Active Protocol: Document 07/15/19 14:20 SP (Rec: 07/15/19 15:59 SP [id number]) PT Summary Assessment and Plan Potential Rehabilitation Potential Good Status of Condition at Evaluation Evolving Summary Impairments Pain,ROM,Strength,Balance,Bed Mobility,Transfers,Gait, Activity Tolerance Progress Towards Goals Progressing Toward Goals Assessment Summary Pt has good pain control and shows good effort with all activities. Pt stated contacted [facility]re[facility] regarding discharge environment which is in his family members home, no stairs . Pt states her daughter will help on weekends and a friend will stay with her weekdays at the 2BR apartment. Pt scheduled caregiver training with her daughter and friend at 11am (coordinate PT and OT). Pt will require assist with ADL's at discharge . Bed mobility SBA using gait belt for RLE repositioning when needed, transfer CGA- SBA , gait CGA initially then SBA usign FWW (dispense for home use), stair mgt earlier am ( stated to tired in pm) 3 step x1 BHR (10 stairs at home) to assimulate home but not needing to at this time staying at [facility] attached appt. Pt stated more tired this pm treatment, didn' t walk as far but improved trunk alignment and step over step gait using FWW. Goals Bed Mobility Goal Standby Assistance Transfer Goal Standby Assistance,Front Wheeled Walker Gait Goal Standby Assistance,Front Wheel Walker Gait Distance 100 Days to Meet Goals 5 Frequency of Treatment Frequency Of Treatment Twice a Day Treatment Plan Physical Therapy Treatment Plan Bed Mobility Training,Transfer Training,Gait Training, Therapeutic Exercise,Balance Retraining,Post Op Education, Discharge Planning,Hot or Cold Pack Other Recommendations and Next Treatment review hip precautions and Focus ther ex, progress gait, bed mobililty Recommendations To Nursing Amount of Assist Needed 1 Person Assist Discharge Recommendations PT Discharge Recommendations Home with Assistance,Home Health Other Discharge Recommendations discharge to functional skills tutor's family attached appt with daughter/ friend to assist. Equipment Needed for Home Before FWW Discharge Transportation Needs at Discharge Private Vehicle
--- NOTE | 2019-07-15 16:08 | CM.DPNOTE ---
DCP Cont According to EDUARDO Jones, patient would like [facility] since they are located close to her home. This OPERATIONS CHIEF attempted referral and Simone at [facility] suggested another agency because they are expected to be out until end of next week for PT Unable to complete additional calls to agencies today, will attempt tomorrow. F2F has been signed JW
[2019-07-15] MEDS: risperiDONE 0.25 MG TABLET PO (21:23)
[2019-07-15] MEDS: MELATONIN 3 MG TABLET 6 MG PO (21:24)
[2019-07-15] MEDS: GABAPENTIN 300 MG CAPSULE PO (21:24)
[2019-07-15] MEDS: clonazePAM 0.5 MG TABLET PO (21:27)
[2019-07-16] VITALS: BP 117/60; PULSE 70; RESP 15; TEMP 36.6; O2SAT 93
[2019-07-16 01:00] VITALS: O2SAT 93
[2019-07-16] MEDS: IBUPROFEN 400 MG TABLET PO ×2 (02:34→09:28)
[2019-07-16 05:00] VITALS: O2SAT 94
[2019-07-16 05:55] VITALS: BP 128/69; PULSE 60; RESP 16; TEMP 36.7; O2SAT 93
[2019-07-16] MEDS: THYROID, PORK 60 MG TABLET 120 MG PO (06:44)
[2019-07-16 07:40] VITALS: O2SAT 92
[2019-07-16 09:00] VITALS: BP 151/77; PULSE 61; RESP 18; TEMP 36.6; O2SAT 97
--- NOTE | 2019-07-16 09:19 | PM.PN.1 ---
Subjective Subjective Date Patient Seen: 07/16/19 Time Patient Seen: 09:20 Interval history: Up walking with a FWW in the halls with PT. She notes that she is doing well overall. She has minimal pain. Pain is adequately controlled with Tylenol and ibuprofen. Exam Vital Signs (past 8 hours): - 07/16/19 05:00 07/16/19 05:55 07/16/19 09:00 Temperature 98.0 F 97.8 F Pulse Rate 60 61 Respiratory Rate 16 18 Blood Pressure 128/69 151/77 H Pulse Oximetry 94 93 97 Oxygen Delivery Method Room Air Oxygen Flow Rate 0 Narrative Exam Narrative: Dressing is dry, calves are soft bilaterally she is neurologically intact distally. There is minimal pain with ambulation Objective Labs Result Diagrams: 07/15/19 05:29 07/15/19 05:29 Assessment & Plan Assessment & Plan narrative: Doing well status post of right hip unipolar for femoral neck fracture. Continue with physical therapy today and anticipate discharge to home on today. 81 mg b.i.d. Aspirin for DVT prophylaxis at time of discharge. Time Spent With Patient Time with patient: less than 15 minutes
[2019-07-16] MEDS: ASPIRIN EC 81 MG TABLET PO (09:28)
[2019-07-16] MEDS: DOCUSATE 100 MG CAPSULE PO (09:29)
[2019-07-16] MEDS: CHOLECALCIFEROL (VITAMIN D3) 1,000 UNIT TABLET 2000 UNIT PO (09:29)
[2019-07-16] MEDS: ACETAMINOPHEN 325 MG TABLET 650 MG PO (09:29)
[2019-07-16] MEDS: atenoloL 50 MG TABLET PO (09:30)
[2019-07-16] MEDS: FLUoxetine 10 MG CAPSULE 30 MG PO (09:32)
[2019-07-16] MEDS: lamoTRIgine 25 MG CHEW TABLET PO (09:32)
[2019-07-16] MEDS: CALCIUM CARBONATE 600 MG TABLET PO (09:33)
--- NOTE | 2019-07-16 10:07 | P.DS_ITS ---
History of Present Illness History of Present Illness Date Patient Seen: 07/16/19 Time Patient Seen: 08:40 Chief complaint: Right Hip Fx Narrative: As per ORVILLE Mortensen: Ms. Sheila Mckenna is an 83-year-old female with a history significant for hypertension, hyperlipidemia, depression with anxiety, hypothyroidism, osteoporosis, insomnia, tremor, chronic diarrhea and presbycusis who presents to the ER at [facility] referred by her primary care for right hip pain. Patient sustained a ground level fall, tripping and landing forward on her hands mild [facility] on 07/05/2019. Patient was unable to get due to hip pain and was taken by wheelchair to her car. She contacted her primary care and had imaging done on 07/07/2019 of the hip which were read as normal. Patient again contacted primary care for worsening hip pain and contacted EMS his recommend by her primary care and taken to [facility]. Patient states she never loss consciousness or struck her head and following and has no neck or back pain. She has isolated hip pain which she treated at home with ibuprofen without relief. She has occasional headaches but denies any at the present time. She denies dizziness nasal congestion or sore throat. She reports no complaints of chest pain or palpitations and has no shortness of breath cough or wheezing. She does have occasional abdominal discomfort but none presently and has a history of chronic diarrhea for which she takes anti diarrheal medication every other day. She denies urinary complaints of urgency, frequency or burning. Well there CT scan was obtained which found a impacted subcapital right femoral neck fracture. Lab work obtained well in the ER reveals a white blood cell count of 6.7, hemoglobin 13.4, hematocrit of 38.7 platelets of 418. On chemistry she has a sodium of 128, potassium of 3.5, BUN of 12 and creatinine 0.7 nonfasting glucose of 103. She has a total bilirubin of 0.5, AST of 28 and ALT of 27. On coagulation she has a PT of 12.6 and INR 1.1. [facility] as no on-call orthopedics and therefore contacted Dr. Rissa Benites who agreed to consult with request for medicine team to admit patient. Discharge Providers Provider Date of admission: 07/11/19 19:30 Discharge Date: 07/16/19 Primary care physician: Dayna Castellanos PA-C Consults: 07/11/19 20:25 Consult to Discharge Planning Routine Comment: Consult to Orthopedic Surgery Routine Comment: Consulting Provider: Veronica Benites Reason for consultation: Right femoral neck fracture Has provider been notified: Yes 07/13/19 17:12 Consult to Discharge Planning Routine Comment: Consult to Physical Therapy Evaluate & Treat Comment: Physician Instructions: post op NESTOR protocol Consult to Respiratory Therapy Evaluate & Treat Comment: Physician Instructions: Evaluate and treat 07/15/19 11:03 Consult to Occupational Therapy Evaluate & Treat Comment: Physician Instructions: Evaluate and treat 07/15/19 15:02 Consult to Home Health Routine Comment: Reason For Exam: FWW For Home Use Discharge provider: Ezequiel Verduzco DO Summary Hospital Course Discharge Diagnosis: Please see hospital course by problem list noted below. Hospital Course: Sheila Mckenna is an 83-year-old female with a past medical history significant for hypertension, hyperlipidemia, depression with anxiety, hypothyroidism, osteoporosis, insomnia, tremor, and chronic diarrhea who presented to [facility] after ground level fall with right hip pain at the guidance of her PCP and was found to have a right hip fracture. Patient was transferred to [facility] as Orthopedic surgery was unavailable at [facility]. She underwent operative intervention on July 13, 2019 and recovered well. She was tolerating a diet and had adequate pain control at the time of discharge. She is being discharged home with home health. 1. Acute right pathological impacted subcapital femoral neck fracture, status post right hip unipolar partial replacement, present on admission. Active. -Patient sustained ground level fall with immediate right hip pain and minimally able to ambulate. -CT of pelvis demonstrated a nondisplaced impacted subcapital femoral neck fracture, 7 mm sclerotic osseous lesion in the right iliac wing was visible on prior films dated 2009, right severe posterior joint space loss with subchondral sclerosis. -Patient was screened for COVID 19 which was negative and ruled out. -Patient was transferred from [facility] as Orthopedic surgery was unavailable. Dr. Benites of orthopedic surgery was consulted and performed right hip unipolar partial replacement. -Continue aspirin 81 mg twice daily x6 weeks for DVT prophylaxis. -Pain control at home with primarily tylenol and motrin, sent 10 pills of [place] in case of severe pain. -Continue home medication of gabapentin 300 mg by mouth at bedtime. -Continue calcium and vitamin-D supplementation. Patient will need to be treated for osteoporosis as an outpatient per PCP or Orthopedic surgery. 2. Hypertension, chronic, present on admission. Stable. -Continue home atenolol 50 mg daily. Held home chlorthalidone 25 mg daily as the patient was hyponatremic with sodium level of 128 on admission. Can resume upon discharge and follow up with PMD. 3. Hypothyroidism, chronic, present on admission. Stable. -TSH elevated at 9, normal free T4, recommend repeat TSH evaluation as an outpatient. -Continue home R[employer]FING [employer]EM[employer] Thyroid 60 mg daily. 4. Chronic diarrhea, present on admission. Stable. -Patient reports she has been referred to gastroenterology but has not yet been evaluated. -Patient takes Imodium 2 mg every other day to control symptoms. Held Imodium due to concern for opiate induced constipation. 5. Insomnia, chronic, present on admission. Stable. 6. Depression with anxiety, chronic, present on admission. Stable. -Patient has flat affect and stable mood. She remains cooperative but required repeat explanations. -Continue home clonazepam 0.5 mg every 8 hours as needed for anxiety, fluoxetine 30 mg daily, lamotrigine 25 mg daily and risperidone 0.25 mg at bedtime. Status at Discharge Cognitive/behavioral status at discharge: at baseline, oriented Functional status at discharge: uses cane/walker Overall status at discharge: patient is progressing back to baseline Time Spent with Patient Time spent: Greater than 30 minutes Exam Vital Signs (past 8 hours): - 07/16/19 05:00 07/16/19 05:55 07/16/19 09:00 Temperature 98.0 F 97.8 F Pulse Rate 60 61 Respiratory Rate 16 18 Blood Pressure 128/69 151/77 H Pulse Oximetry 94 93 97 Oxygen Delivery Method Room Air Oxygen Flow Rate 0 Narrative Exam Narrative: General: Elderly female sitting in bed and in no acute distress, well-developed, well-nourished, appropriately interactive. HEENT: Normocephalic, atraumatic. External ears without defect. Anicteric sclerae, moist conjunctivae, and no lid lag. Neck: Supple with full range of motion. No lymphadenopathy or thyromegaly. Cardiovascular: Regular rate and rhythm without murmurs, rubs, or gallops appreciated. Pulmonary: Clear to auscultation bilaterally without crackles, wheezes, or rhonchi. Normal respiratory effort with no use of accessory muscles. Abdomen: Soft, bowel sounds present nontender, nondistended. No hepatosplenomegaly or masses appreciated. Extremities: No clubbing, cyanosis, or edema. Right hip with dressing in place C/D/I without surrounding erythema or edema. Distal pulses and movement intact. Skin: Normal temperature, turgor, and texture; no rash, ulcers, or subcutaneous nodules appreciated. Neurological: Cranial nerves grossly intact. no focal neurological deficits Psychiatric: Normal mood and flat affect. Alert and oriented to person, place, and time. Objective Labs Result Diagrams: 07/15/19 05:29 07/15/19 05:29 Discharge Plan Discharge Plan Patient Disposition: Home Health Service Transfer to: [facility] Discharge comment: You were admitted to the hospital after a R hip fracture. You did well with PT and are being discharged home. You are to continue aspirin 81 mg twice a day per orthopedic surgery and I have sent a few stronger pain pills in case your pain is intolerable but continue tylenol and ibuprofen preferentially. Discharge orders & Medications Prescriptions: New aspirin 81 mg Tablet,Delayed Release (Dr/Ec) 81 mg PO BID 42 Days Qty: 84 RF: 0 hydrocodone-acetaminophen 5-325 mg tablet 1 tab PO Q6H PRN (Reason: pain) 7 Days Qty: 10 RF: 0 ibuprofen 400 mg Tablet 400 mg PO Q4HR 14 Days Qty: 60 RF: 0 Continued clonazepam 1 mg Tablet 0.5 mg PO Q8H PRN (Reason: Anxiety) RF: 0 atenolol-chlorthalidone 50-25 mg Tablet 1 tab PO DAILY RF: 0 risperidone 0.25 mg Tablet 0.25 mg PO BEDTIME RF: 0 acyclovir 400 mg Tablet 400 mg PO TID RF: 0 lamotrigine 25 mg Tablet 25 mg PO DAILY RF: 0 temazepam 15 mg Capsule 15 - 30 mg PO BEDTIME PRN (Reason: Sleep) RF: 0 fluoxetine 10 mg Capsule 10 mg PO DAILY RF: 0 gabapentin 300 mg Capsule 300 mg PO BEDTIME RF: 0 fluoxetine 20 mg Capsule 20 mg PO DAILY RF: 0 thyroid (pork) [ROO[employer]ING [employer]EM[employer] Thyroid] 60 mg Tablet 60 mg PO DAILY RF: 0 potassium chloride 20 mEq Tablet Extended Release 10 meq PO DAILY RF: 0 [place]-3 Fish Oil 300-1,000 mg Capsule 1,000 cap PO DAILY RF: 0 turmeric 400 mg Capsule 400 - 800 mg PO DAILY RF: 0 Follow up/Referrals: Dayna Castellanos PA-C [Primary Care Provider] - Veronica Benites MD [Physician] - Diet/Activity/Treatments Diet: Diet as Tolerated Activity: As tolerated Skin/Wound/Dressing Care Dressing: Leave dressing in place until follow up appointment. If it needs changing call the office and they will have you come in for a dressing change. Other wound treatment: May use ice pack if needed. Visit Report/Discharge Packet Instructions: How to Choose and Use a Walker, DI for Hip Replacement, DI for Constipation, How to Prevent Falls, DI for Postoperative Pain, DI for Prescription Opioid Use, Oxycodone Stand Alone Forms: Surgery Discharge Visit Report Forms: Patient Portal/API, Stroke Signs & Symptoms Discharge Data Primary Care Provider: Dayna Castellanos Discharges patient from system. Discharge Date/Time: 07/16/19 13:10
--- NOTE | 2019-07-16 10:43 | CM.DPC ---
DCP Discharge Home with HH Per MD, pt is medically stable to d/c home today after CG training with HH and no identified barriers to discharge. Per PT, pt's Dtr to arrive around 1100 today to complete CG training and pt has progressed enough for safe d/c home with family assist and HH. SW faxed [facility] new referral based on Vendor Calendar along with F2F and orders and called Mora at [facility] and requested review and confirmed they can accept pt and can open within 48 hours. Plan: Patient to d/c home this afternoon via Dtr POV after final CG training with PT and [facility] to open pt to service after discharge. Amairani Coulter MSW
--- NOTE | 2019-07-16 11:38 | PT.IPTN ---
Current Diagnoses Age-related osteoporosis with current pathological fracture, right femur, initial encounter for fracture (07/11/19) Surgery Performed Operation Date: 07/13/19 14:00 Actual Procedures p Hip Hemiarthroplasty (partial unipolar hip replacement)(Right) - Veronica Benites MD Physical Therapy Treatment Note M2 PT-IP Current Condition Start: 07/14/19 09:24 Freq: NEEDED Status: Active Protocol: Document 07/14/19 10:46 AW (Rec: 07/14/19 12:09 AW [id number]) Physical Therapy Current Condition Current Condition Evaluation Date 07/14/19 Treatment Diagnosis GLF, R femoral neck fx s/p unipolar hip replacement, difficulty walking Onset Date 07/05/19 Precautions Posterior Hip Precautions No Hip Flexion > 90 degrees,No Hip Internal Rotation,No Hip Adduction Other Precautions ostoeporosis, fall risk Weight Bearing Status Weight Bearing Status Weight Bear as Tolerated M3 PT-IP Subjective Start: 07/14/19 09:24 Freq: NEEDED Status: Active Protocol: Document 07/16/19 08:45 MB (Rec: 07/16/19 11:38 MB [id number]) Subjective Physical Therapy Visit Type Type Treatment Note Visit Start Time 08:45 Visit Stop Time 09:28 Total Visit Minutes 43 Number of FISHERY BIOLOGIST Visits 0 Physical Therapy Visit Comments Patient Comments Pt is agreeable to PT. She would like a few photos of the beautiful jean that have been sent to her. Pt reports 0 /10 pain at rest and 2/10 right hip with mobility. Therapy Pain Assessment Pain When Pain Assessed At Rest Pain Present Pain Present Denied Pain M4 PT-IP Mobility and Gait Start: 07/14/19 09:24 Freq: NEEDED Status: Active Protocol: Document 07/16/19 08:45 MB (Rec: 07/16/19 11:38 MB [id number]) PT-Transfer Assessment Sit to and From Stand Sit to and from Stand Standby Assistance,1 Person Assistance,Use of Upper Extremities Equipment Transfer Assistive Device Gait Belt,Front Wheeled Walker Transfer Ability Level of Assist Standby Assistance,1 Person Assistance,Use of Upper Extremities Comments Mobility Comments Pt sitting in chair upon arrival and agreeable for walker fitting and gait training. She is able to verbalize 2/3 right hip precautions and requires cues about 90 deg flexion precaution Gait Assessment Gait Gait Assistance Required: Standby Assistance Distance (Feet) 200 Able to Maintain Weight Bearing Status Yes During Gait Assistive Devices Assistive Device Gait Belt,Front Wheeled Walker Gait Deviations General Gait Pattern Antalgic,Decreased Stride Length,Decreased Feet Clearance,Flexed Trunk Comments Gait Comments Pt is able to improve with mark and step-through gait pattern with increasing gait distance. Stair Climbing Assessment Comments Stair Climbing Comments Pt has no steps to d/c location PT-Balance Assessment Sitting Balance and Reactions Static Sitting Balance Ability Fair Dynamic Sitting Balance Ability Fair Standing Balance and Reactions Static Standing Balance Ability Fair Dynamic Standing Balance Ability Fair Device Used FWW M5 PT-IP Objective Assessments Start: 07/14/19 09:24 Freq: NEEDED Status: Active Protocol: Document 07/14/19 10:46 AW (Rec: 07/14/19 12:09 AW [id number]) Orientation Orientation/Cognition Level of Alertness Alert Orientation Name,Day of Week,Place, Situation Language Function Ability No Deficits Noted Safety Awareness Decreased Safety Awareness Memory Description No Deficits Noted Gross Range of Motion Lower Extremity ROM Assessment Right Impaired Strength Lower Extremity Strength Assessment Bilaterally Impaired Comments Strength Comments Grossly 4-/5 LLE; R ankle DF/ PF 4-/5 Coordination Assessment Gross Coordination Gross Coordination WNL Sensation Assessment Sensation Gross Sensation WNL Muscle Tone Muscle Tone WNL Yes M6 PT-IP Treatment Start: 07/14/19 09:24 Freq: NEEDED Status: Active Protocol: Document 07/16/19 08:45 MB (Rec: 07/16/19 11:38 MB [id number]) Physical Therapy Treatment Education Education Provided Precautions,Weight Bearing Status Equipment Issued Equipment Type and Company FWW, ed pt on proper height and use of walker--for walking only and not for sit to stand transfers. Ed pt to push up from the chair and to reach back for it. Ed pt on safety techniques for getting in and out of car, her daughter is coming to pick her up later this morning. M7 PT-IP Assessment and Plan Start: 07/14/19 09:24 Freq: NEEDED Status: Active Protocol: Document 07/16/19 08:45 MB (Rec: 07/16/19 11:38 MB [id number]) PT Summary Assessment and Plan Potential Rehabilitation Potential Good Status of Condition at Evaluation Evolving Summary Impairments ROM,Strength,Balance,Bed Mobility,Transfers,Gait, Activity Tolerance Progress Towards Goals Progressing Toward Goals Assessment Summary Pt progresses with gait pattern during treatment. She declines bed mobility training and would like PT to come back after her daughter arrives. She verbalizes understanding of walker height and use. She has met transfer from chair goal and gait goal this morning. PT to return for family training. Goals Bed Mobility Goal Standby Assistance Transfer Goal Standby Assistance,Front Wheeled Walker Gait Goal Standby Assistance,Front Wheel Walker Gait Distance 100 Days to Meet Goals 5 Frequency of Treatment Frequency Of Treatment Twice a Day Treatment Plan Physical Therapy Treatment Plan Bed Mobility Training,Transfer Training,Gait Training, Therapeutic Exercise,Balance Retraining,Post Op Education, Discharge Planning,Hot or Cold Pack Other Recommendations and Next Treatment review hip precautions and Focus ther ex, progress gait, bed mobililty Recommendations To Nursing Amount of Assist Needed 1 Person Assist Discharge Recommendations PT Discharge Recommendations Home with Assistance,Home Health Other Discharge Recommendations discharge to certified paralegal's family attached appt with daughter/ friend to assist. Equipment Needed for Home Before FWW provided Discharge Transportation Needs at Discharge Private Vehicle
--- NOTE | 2019-07-16 11:52 | PT.IPTN ---
Current Diagnoses Age-related osteoporosis with current pathological fracture, right femur, initial encounter for fracture (07/11/19) Surgery Performed Operation Date: 07/13/19 14:00 Actual Procedures p Hip Hemiarthroplasty (partial unipolar hip replacement)(Right) - Veronica Benites MD Physical Therapy Treatment Note M2 PT-IP Current Condition Start: 07/14/19 09:24 Freq: NEEDED Status: Active Protocol: Document 07/14/19 10:46 AW (Rec: 07/14/19 12:09 AW [id number]) Physical Therapy Current Condition Current Condition Evaluation Date 07/14/19 Treatment Diagnosis GLF, R femoral neck fx s/p unipolar hip replacement, difficulty walking Onset Date 07/05/19 Precautions Posterior Hip Precautions No Hip Flexion > 90 degrees,No Hip Internal Rotation,No Hip Adduction Other Precautions ostoeporosis, fall risk Weight Bearing Status Weight Bearing Status Weight Bear as Tolerated M3 PT-IP Subjective Start: 07/14/19 09:24 Freq: NEEDED Status: Active Protocol: Document 07/16/19 11:02 MB (Rec: 07/16/19 11:52 MB [id number]) Subjective Physical Therapy Visit Type Type Treatment Note Visit Start Time 11:02 Visit Stop Time 11:22 Total Visit Minutes 20 Number of DRUG AND ALCOHOL TREATMENT SPECIALIST Visits 0 Physical Therapy Visit Comments Patient Comments Pt's Janet munoz, in room and PT arrives for family training. Pt and daughter agreeable to ed. Therapy Pain Assessment Pain When Pain Assessed At Rest Pain Present Pain Present Denied Pain M4 PT-IP Mobility and Gait Start: 07/14/19 09:24 Freq: NEEDED Status: Active Protocol: Document 07/16/19 11:02 MB (Rec: 07/16/19 11:52 MB [id number]) PT-Transfer Assessment Sit to and From Stand Sit to and from Stand Standby Assistance,1 Person Assistance,Use of Upper Extremities Equipment Transfer Assistive Device Gait Belt,Front Wheeled Walker Transfer Ability Level of Assist Standby Assistance,1 Person Assistance,Use of Upper Extremities Comments Mobility Comments Pt sitting in chair upon arrival with daughter nearby. Pt can still only recall 2/3 hip precautions despite PT and pt reviewing a few hours ago. Re-ed pt and daughter on all hip precautions, especially hip flexion since pt con't to forget this. She con't to require cues to push up from the chair and not to reach for walker with sit to stand from chair to walker. She does remember to reach for bathroom rail on left for toileting and it able to manage briefs and sit to stand safely from commode. PT instructs pt and daughter on use of gait belt and walker with transfers and gait. Gait Assessment Gait Gait Assistance Required: Standby Assistance Distance (Feet) 10 Able to Maintain Weight Bearing Status Yes During Gait Assistive Devices Assistive Device Gait Belt,Front Wheeled Walker Gait Deviations General Gait Pattern Antalgic,Decreased Stride Length,Decreased Feet Clearance,Flexed Trunk Comments Gait Comments Gait to and chair to bathroom toilet. She has better posture and foot clearance with gait compared to earlier in the morning. Stair Climbing Assessment Comments Stair Climbing Comments Deferred d/t no steps at d/c location PT-Balance Assessment Sitting Balance and Reactions Static Sitting Balance Ability Good Dynamic Sitting Balance Ability Good Standing Balance and Reactions Static Standing Balance Ability Good Dynamic Standing Balance Ability Fair Device Used FWW M5 PT-IP Objective Assessments Start: 07/14/19 09:24 Freq: NEEDED Status: Active Protocol: Document 07/14/19 10:46 AW (Rec: 07/14/19 12:09 AW [id number]) Orientation Orientation/Cognition Level of Alertness Alert Orientation Name,Day of Week,Place, Situation Language Function Ability No Deficits Noted Safety Awareness Decreased Safety Awareness Memory Description No Deficits Noted Gross Range of Motion Lower Extremity ROM Assessment Right Impaired Strength Lower Extremity Strength Assessment Bilaterally Impaired Comments Strength Comments Grossly 4-/5 LLE; R ankle DF/ PF 4-/5 Coordination Assessment Gross Coordination Gross Coordination WNL Sensation Assessment Sensation Gross Sensation WNL Muscle Tone Muscle Tone WNL Yes M6 PT-IP Treatment Start: 07/14/19 09:24 Freq: NEEDED Status: Active Protocol: Document 07/16/19 11:02 MB (Rec: 07/16/19 11:52 MB [id number]) Physical Therapy Treatment Education Education Provided Precautions,Weight Bearing Status,Post-Op Packet,Safety Equipment Issued Equipment Type and Company Reviewed all hip fracture post -op exercises with pt and daughter using handout, ed pt and daughter in safe positioning for sleeping with pillow between legs if on side , log rolling for supine to sit and sit to supine, transfers, use of walker and gait belt. M7 PT-IP Assessment and Plan Start: 07/14/19 09:24 Freq: NEEDED Status: Active Protocol: Document 07/16/19 11:02 MB (Rec: 07/16/19 11:52 MB [id number]) PT Summary Assessment and Plan Potential Rehabilitation Potential Good Status of Condition at Evaluation Evolving Summary Impairments ROM,Strength,Balance,Bed Mobility,Transfers,Gait, Activity Tolerance Progress Towards Goals Progressing Toward Goals Assessment Summary Family training completed. Anticipate pt to d/c home. Goals Bed Mobility Goal Standby Assistance Transfer Goal Standby Assistance,Front Wheeled Walker Gait Goal Standby Assistance,Front Wheel Walker Gait Distance 100 Days to Meet Goals 5 Frequency of Treatment Frequency Of Treatment Twice a Day Treatment Plan Physical Therapy Treatment Plan Bed Mobility Training,Transfer Training,Gait Training, Therapeutic Exercise,Balance Retraining,Post Op Education, Discharge Planning,Hot or Cold Pack Other Recommendations and Next Treatment review hip precautions and Focus ther ex, progress gait, bed mobililty Recommendations To Nursing Amount of Assist Needed 1 Person Assist Discharge Recommendations PT Discharge Recommendations Home with Assistance,Home Health Other Discharge Recommendations discharge to labor relations officer's family attached appt with daughter/ friend to assist. Equipment Needed for Home Before FWW provided Discharge Transportation Needs at Discharge Private Vehicle
--- NOTE | 2019-07-16 12:23 | OT.IP.TRT ---
Current Diagnoses Age-related osteoporosis with current pathological fracture, right femur, initial encounter for fracture (07/11/19) Surgery Performed Operation Date: 07/13/19 14:00 Actual Procedures p Hip Hemiarthroplasty (partial unipolar hip replacement)(Right) - Veronica Benites MD Occupational Therapy Treatment Note M2 OT-IP Current Condition Start: 07/15/19 14:26 Freq: Status: Active Protocol: Document 07/15/19 14:26 CGR (Rec: 07/15/19 14:39 CGR [id number]) Occupational Therapy Current Condition Current Condition Evaluation Date 07/15/19 Treatment Diagnosis R hip unipolar posterior hip replacement. Post Operative Precautions Posterior Hip Precautions No Hip Flexion > 90 degrees,No Hip Internal Rotation,No Hip Adduction Weight Bearing Status Weight Bearing Status Weight Bear as Tolerated M3 OT- IP Subjective and Pain Start: 07/15/19 14:26 Freq: Status: Active Protocol: Document 07/16/19 12:40 CGR (Rec: 07/16/19 13:00 CGR [email or web address]) OT- Subjective Occupational Therapy Visit Type Type Progress Note Visit Start Time 11:37 Visit Stop Time 12:23 Total Visit Minutes 48 Notes Pt's daughter present throughout session. M4 OT- IP ADL's Start: 07/15/19 14:26 Freq: Status: Active Protocol: Document 07/16/19 12:40 CGR (Rec: 07/16/19 13:00 CGR [email or web address]) OT [id number] Comments OT Self-Feeding Comments Not meal time OT ADL-Grooming Comments OT Grooming Comments Not performed OT ADL-Oral Care Comments Oral Care Comments Not performed OT ADL-Dressing General Eval Lower Body Dressing Ability Minimal Assistance Areas Needing Assistance Pants/Shorts,Socks Assistive Devices Dressing Assistive Devices Dressing Stick,Proctologist,Sock Aid Comments OT Dressing Comments Pt needed max extra time, mod to max verbal cues and min a for donning socks and pants. Pt appears confused by the equipment even after she had used it to don socks and pants . Pt needed multiple redirections to focus on dressing and states that this appears very complicated to her. Pt is likely to need multiple reminders for safe dressing for multiple days upon being home. Daughter appears to understand and allowed pt time to try to figure thigns out without assist. OT ADL-Toileting Comments OT Toileting Comments Not performed in this session. OT ADL-Bathing Comments OT Bathing Comments Not performed in this session. M5 OT- IP IADL's Start: 07/15/19 14:26 Freq: Status: Active Protocol: Document 07/15/19 14:26 CGR (Rec: 07/15/19 14:39 CGR [id number]) OT-Instrumental Activities of Daily Living Deficits IADL Deficits Identified Deficits Home Safety Awareness Awareness of Need for Assistance at Home Good Awareness Ability to Problem Solve Emergency Able to Problem Solve Situations Medication Management Medication Management Comments d/t cognitive processing issues with LB dressing, there is some concern for pt managing new medications without supervision. M6 OT- IP Functional Cognition Start: 07/15/19 14:26 Freq: Status: Active Protocol: Document 07/16/19 12:40 CGR (Rec: 07/16/19 13:00 CGR [email or web address]) Cognitive Factors Limiting Selfcare Function Cognitive Ability Level of Alertness Alert,Confusional State Patient Orientation Name,Age,Birthday,Month,Date, Year,Day of Week,Place, Situation Ability to Follow Commands Able to Follow One Step Commands with Increased Time, Able to Follow One Step Commands with Repetition Safety Awareness Decreased Recall of Precautions,Decreased Ability to Apply Precautions, Underestimates Need for Assistance Problem Solving Ability Unable to Identify Errors, Needs Assist to Identify Solutions Cognitive Comments Cognitive Assessment Comments Pt had difficulty using the DME for LB dressing even after having done it sucessfully. Concerns for pt's short term and working memory. May benefit from cog testing. OT- Vision and Hearing OT- Hearing Assessment OT- Hearing Assessment WFL OT- Vision Assessment Vision History Cataracts Visual Acuity WFL Visual Attentiveness WFL Occular Pursuits WFL Visual Convergence WFL M7 OT- IP Mobility and Balance Start: 07/15/19 14:26 Freq: Status: Active Protocol: Document 07/16/19 12:40 CGR (Rec: 07/16/19 13:00 CGR [email or web address]) OT-Transfer Assessment Sit to and From Stand Sit to and from Stand Standby Assistance Transfers Transfer Ability Standby Assistance Technique Transfer Destination Bed,Chair Transfer Technique Stand Step Pivot Devices Transfer Assistive Devices Gait Belt,Front Wheeled Walker OT- Balance Assessment Sitting Balance and Reactions Static Sitting Balance Ability Good Dynamic Sitting Balance Ability Good M8 OT- IP Objective Assessments Start: 07/15/19 14:26 Freq: Status: Active Protocol: Document 07/15/19 14:26 CGR (Rec: 07/15/19 14:39 CGR [id number]) OT Gross Range of Motion Upper Extremity Range of Motion Assessment Within Functional Limits OT Strength Upper Extremity Strength Assessment Within Functional Limits Comments Strength Comments 4/5 OT- Coordination Assessment Upper Extremity Finger to Nose Test Within Functional Limits Finger Tapping Test Within Functional Limits OT-Muscle Tone Assessment Muscle Tone WNL Yes OT Sensation Assessment Edema Edema Absent M9 OT- IP Assessment and Plan Start: 07/15/19 14:26 Freq: Status: Active Protocol: Document 07/16/19 12:40 CGR (Rec: 07/16/19 13:00 CGR [email or web address]) OT Summary Assessment and Plan Potential Rehabilitation Potential Good Analytic Complexity at Evaluation Low Summary OT Impairments Pain,Strength,Coordination, Functional Cognition, Functional Mobility,Dressing, Toileting,Bathing,Toilet Transfers,Shower Transfers, Activity Tolerance Progress Towards Goals Progressing Toward Goals Assessment Summary Pt presents with cognitive difficulty in use of DME for safe LB dressing. Pt and daughter educated on the importance of maintaining hip precautions. Daughter states understanding of hip precautions and of LB dressing . Pt would benefit from 13/10 assist at home for at least a week d/t concern for maintaining hip precautions with ADLs. Goals Grooming Goal Independent Dressing Goal Independent,Proctologist,Sock Aid Toileting Goal Independent Bathing Goal Independent Toilet Transfer Goal Independent Shower Transfer Goal Independent Days to Meet Goals 1 Frequency of Treatment Frequency Of Treatment Once a Day Treatment Plan OT Treatment Plan ADL Training,Functional Cognition Training,Functional Mobility,Patient/Family Education,Discharge Planning Other Treatment Recommendations and Next review LB dressing with Treatment Focus equipment and shower. Discharge Recommendations OT Discharge Recommendations Home with Assistance Other Discharge Recommendations At this time, pt will need assist with LB dressing and bathing at home. Home Equipment Needs Walker Transportation Needs at Discharge Private Vehicle
== END 2019-07-16 13:10 | disposition home health service (06) | DRG 470 ==
PROVIDERS: Internal Medicine; Orthopaedic Surgery; Admitting Provider Nurse Practitioner Adult Health; PCP Physician Assistant; Referring Provider Nurse Practitioner Adult Health; Visit Provider Nurse Practitioner Adult Health
PROC: 0SRR0JZ Replacement of Right Hip Joint, Femoral Surface with Synthetic Substitute, Open Approach (ICD-10-PCS; CPT 27125; principal; 2019-07-13 14:00)
DX: M80.051A Age-related osteoporosis with current pathological fracture, right femur, initial encounter for fracture (principal); I10 Essential (primary) hypertension; E78.5 Hyperlipidemia, unspecified; F32.9 Major depressive disorder, single episode, unspecified; F41.9 Anxiety disorder, unspecified; K52.9 Noninfective gastroenteritis and colitis, unspecified; E03.9 Hypothyroidism, unspecified; G47.00 Insomnia, unspecified; R25.1 Tremor, unspecified; W01.0XXA Fall on same level from slipping, tripping and stumbling without subsequent striking against object, initial encounter; Y92.512 Supermarket, store or market as the place of occurrence of the external cause
CPT/HCPCS: 36415; 73502; 80048; 80053; 81001; 83735; 84439; 84443; 85025; 87077; 87086; 87147; 93005; 93010; 94760; 97110; 97116; 97161; 97165; 97530; 97535; C1776; C9290; J0690; J1100; J2405; J2704; J3010; J3480

== ENCOUNTER → 2022-07-17 13:20 | Outpatient (CLI) | payer MEDICARE, OTHER, SELFPAY ==
--- NOTE | 2022-07-29 07:59 | PM.PFT.1 ---
Pulmonary Function Test Referral & Results Date Patient Seen: 07/17/22 Results: The spirometry demonstrates an FVC of 1.74 L which is 76% of predicted. The FEV1 was measured at 1.41 L which is 84% of predicted. The FEV1/FVC ratio was 81 which is 110% of predicted. Following the administration of bronchodilator there was no change. Lung volumes show an SVC of 1.83 L which is 74% of predicted. The diffusing capacity was measured at 10.25 which is 44% of predicted. No hemoglobin value was provided, so no correction for potential anemia could be made, if appropriate. The maximum voluntary ventilation was reduced Interpretation: This study demonstrates possibly mild obstructive lung disease based on reduction FEV1 although FEV1/FVC ratio is preserved. There is also no evidence of benefit following bronchodilator administration There is a minimal reduction in lung volumes suggesting the presence of minimal restrictive lung disease There is a moderate to moderately severe reduction in diffusing capacity suggesting significant disease at the capillary alveolar level Clinical correlation suggested
== END ==
PROVIDERS: PCP Physician Assistant; Referring Provider Internal Medicine Critical Care Medicine; Visit Provider Internal Medicine Critical Care Medicine
DX: R06.09 Other forms of dyspnea (principal); J98.8 Other specified respiratory disorders
CPT/HCPCS: 94060; 94726; 94729

== ENCOUNTER → 2022-07-28 10:18 | Outpatient (CLI) | payer MEDICARE, OTHER, SELFPAY ==
--- NOTE | 2022-07-28 | DI.ECHO.S_ITS ---
[facility]---------+ [facility] +---------+ : : [address] : : : : [id number] : : : : Phone: [phone]+ Echocardiogram Report + + :Name: VERONICA POND Study Date: 07/28/2022 Height: 63 in : :[facility] ReadingLocation: Weight: 110 lb : : Gender: Female BSA: 1.5 m2 : :: 1935 Age: 87 yrs BP: 156/89 mmHg: :Reason For Study: OTHER FORMS OF DYSPNEA HR: 60 : :Ordering Physician: JENIFFER, : :NEAL Performed By: ALYSSA ALEJANDRA : :Referring: NEAL SWIFT : + + Interpretation Summary The ejection fraction is estimated to be 55-60%. There is mild mitral regurgitation. There is mild aortic regurgitation. The aortic valve is slightly calcified. The right ventricular systolic pressure is estimated to be at least 80 mmHg based on an estimated right atrial pressure of 8 mm Hg. Procedure: A two-dimensional transthoracic echocardiogram with color flow and Doppler was performed. The study quality was technically adequate. There is no prior echocardiogram noted for this patient. The patient was in normal sinus rhythm during the exam. Left Ventricle: The left ventricle is normal in size and wall thickness. Left ventricular systolic function is normal. The ejection fraction is estimated to be 55-60%. Right Ventricle: The right ventricle is mildly dilated. The right ventricular systolic function is normal. Atria: The left atrial size is normal. The right atrium is mildly dilated. There is no Doppler evidence for an interatrial shunt. Mitral Valve: The mitral valve leaflets appear normal. There is no evidence of stenosis, fluttering, or prolapse. There is mild mitral regurgitation. Aortic Valve: The aortic valve is trileaflet. The aortic valve opens well. The aortic valve is slightly calcified. There is no aortic valve stenosis. There is mild aortic regurgitation. Tricuspid Valve: The tricuspid valve is normal. There is moderate tricuspid regurgitation. The right ventricular systolic pressure is estimated to be at least 80 mmHg based on an estimated right atrial pressure of 8 mm Hg. Pulmonic Valve: The pulmonic valve leaflets are thin and pliable; valve motion is normal. There is moderate pulmonic regurgitation. Great Vessels: The aortic root is normal size. The ascending aorta could not be visualized. The IVC is dilated (diameter is greater than 2.1 cm) yet it collapses greater than 50% with a sniff. This suggests a right atrial pressure of 8 mm Hg. Pericardium/ Pleura There is a trivial pericardial effusion noted. There is no pleural effusion. MMode/2D Measurements & Calculations LVIDd: 2.7 cm LVOT diam: 1.7 cm LVIDs: 1.4 cm Ao root diam: 3.3 cm FS: 48.1 % IVSd: 1.0 cm LVPWd: 0.90 cm LV kolb. diameter/BSA (cm/m^2): 1.8 LV sys. diameter/BSA (cm/m^2): 0.93 LA A2 area: 19.1 cm2 RA long axis: 5.1 cm LA A4 area: 12.3 cm2 LA length (vol): 5.8 cm LA vol: 34.3 ml LA vol index: 22.9 ml/m2 LVLs ap4: 5.3 cm LVLd ap2: 6.8 cm LVLs ap2: 5.2 cm TAPSE_phl: 1.9 cm Doppler Measurements & Calculations Ao V2 max: 161.0 cm/sec LVOT Max Tristan: 123.0 cm/sec Ao V2 mean: 106.0 cm/sec LV V1 max P.1 mmHg Ao max P.4 mmHg LV V1 VTI: 28.4 cm Ao mean P.0 mmHg ERIN(I,D): 1.9 cm2 Ao V2 VTI: 33.4 cm ERIN(V,D): 1.7 cm2 sev ratio: 0.85 ERIN indexed to BSA (cm^2/m^2): 1.3 MV E max tristan: 73.7 cm/sec TR max tristan: 423.0 cm/sec MV A max tristan: 97.3 cm/sec TR max P.6 mmHg MV E/A: 0.76 PA V2 max: 102.0 cm/sec Med Peak E' Tristan: 5.0 cm/sec PA V2 mean: 62.7 cm/sec E/E' med: 14.7 PA mean P.0 mmHg Lat Peak E' Tristan: 5.1 cm/sec E/E' lat: 14.4 E/e' average: 14.5 MV dec time: 0.40 sec SV(LVOT): 64.5 ml AV VR_phl: 0.76 ERIN(VTI)/BSA_phl: 1.3 MV P1/2t-pr_phl: 117.0 msec Reading Physician:01:20 PM
== END ==
PROVIDERS: PCP Registered Nurse; Referring Provider Internal Medicine Critical Care Medicine; Visit Provider Internal Medicine Critical Care Medicine
DX: R06.09 Other forms of dyspnea (principal); I08.3 Combined rheumatic disorders of mitral, aortic and tricuspid valves
CPT/HCPCS: 93306